=== PATIENT | male | born 1950 | race Caucasian/White ===

== ENCOUNTER 2018-01-16 19:42 | Inpatient (IN) | payer MEDICARE, BC ==
[~2018-01-16 19:42] MED LIST changes: -ASPI81TA86 PO; -CHOL10005 PO; -LISI-362 PO; -LOSA50TA72 PO; -OMEG-11 PO; -POTA20TA94 PO; -SIMV-49 PO
--- NOTE | 2018-01-16 19:51 | ER Report ---
History and Physical Time Seen By MD: 19:48 HPI/ROS CHIEF COMPLAINT: Epigastric abdominal pain HISTORY OF PRESENT ILLNESS: Patient is a 67-year-old male who is brought in by ambulance from [place] for evaluation of epigastric abdominal pain that began around 1:30 this afternoon. Patient has a prior history of gallstone pancreatitis and is status post gallstone removal. His last pancreatic otitis attack was 2 years ago. Patient denies any alcohol use and states that he quit alcohol 2 years ago when he had the bout of pancreatitis. He denies any cardiac history. Patient apparently developed pain around 1:30 pain does radiate to the back. Around 5:30 became diaphoretic. He denied any chest pain or pressure. Because the symptoms persisted he was brought into the emergency department for further evaluation. Additional history obtained from the spouse. Patient had a recurrent episode of pancreatitis in 2014 required ICU admission was, gait about pancreatic pseudocyst and then patient apparently became bacteremic and required broad-spectrum antibiotics. REVIEW OF SYSTEMS: Constitutional: No fever, no chills. Eyes: No discharge. ENT: No sore throat. Cardiovascular: No chest pain, no palpitations. Respiratory: No cough, no shortness of breath. Gastrointestinal: Epigastric abdominal pain, nausea, vomiting no diarrhea Genitourinary: No hematuria. Musculoskeletal: No back pain. Skin: No rashes. Neurological: No headache. Allergies: Coded Allergies: No Known Drug Allergies (Unverified , 01/16/18) Home Meds Reported Medications [place]-3 Fatty Acids/Fish Oil (FISH OIL 1,000 MG CAPSULE) 1 Each Capsule, 2 EACH PO QDAY, CAPSULE 01/16/18 Cholecalciferol (Vitamin D3) (VITAMIN D3) 1,000 Unit Tablet, 2 TAB PO QDAY, TAB 01/16/18 Aspirin (ASPIRIN EC) 81 Mg Tablet.dr, 81 MG PO QDAY, TAB 01/16/18 Simvastatin (SIMVASTATIN) 20 Mg Tablet, 20 MG PO HS, TAB 01/16/18 Lisinopril (LISINOPRIL) 10 Mg Tablet, 10 MG PO QDAY, TAB 01/16/18 Discontinued Reported Medications Ketorolac Tromethamine (Toradol) 10 Mg Tab, 10 MG PO QID, #12 08/22/07 Acetaminophen/Codeine (Tylenol #3 300-30 Mg) 1 Ea Tab, 2 EA PO Q4H 1, #30 1-2 TABLETS 11/7/07 Ranitidine Hcl (Zantac) 150 Mg Capsule, 150 MG PO 08/10/07 Acetaminophen (Tylenol) 325 Mg Tab, 325 MG PO Q4H 08/10/07 Past Medical/Surgical History History of gallstone pancreatitis; status post gallbladder removal. Hx Alcohol Use: Yes (OCC) Constitutional Vital Sign - Last 24 Hours 01/16/18 01/16/18 01/16/18 01/16/18 19:44 19:57 20:01 20:12 Temp 97.6 Pulse 47 46 48 Resp 20 B/P (MAP) 152/99 148/88 (108) Pulse Ox 94 99 97 O2 Delivery Nasal Cannula 01/16/18 01/16/18 01/16/18 01/16/18 20:27 20:30 20:57 21:00 Pulse 49 53 B/P (MAP) 142/89 (106) 163/86 (111) Pulse Ox 99 01/16/18 01/16/18 01/16/18 01/16/18 21:38 21:50 22:05 22:20 Pulse ? 53 B/P (MAP) 161/88 (112) Pulse Ox 99 99 98 01/16/18 23:03 B/P (MAP) 153/91 (111) Physical Exam General/Constitutional: Patient is awake, alert, nontoxic and in no acute respiratory distress. Head: Normocephalic and atraumatic. Eyes: Conjunctival clear, Pupils are equal and reactive to light. Extraocular muscles are intact and symmetrical. Sclera are clear and anicteric. Ears:External canals are clear. Tympanic membranes are clear with normal landmarks and light reflex. Nares: No rhinorrhea or bleeding. Turbinates are pink and moist. Oropharyngeal: Mucous membranes are moist. There is no pharyngeal erythema or exudate. There are no palatal petechiae. Uvula is midline and symmetrical. Neck: Supple, no adenopathy. Cardiovascular: Heart is bradycardic without audible murmurs, rubs or gallops. Pulmonary: Lungs are clear to auscultation bilaterally. There are no wheezes, rales, or rhonchi. Chest rise is symmetrical Abdomen: Epigastric abdominal pain no guarding or rebound tenderness Extremities: No gross deformities, No peripheral cyanosis. Able to move all 4 extremities. Neuro: Alert and oriented X3, Skin: No rashes, skin is warm dry and well perfused. Medical Decision Making Data Points Result Diagram: 01/16/18199901/16/181999 Laboratory Hematology Test 01/16/18 00:00 01/16/18 20:00 01/16/18 22:45 01/16/18 22:58 Serum Alcohol < 10 mg/dl Red Blood Count 6.05 M/uL (4.00-5.60) Mean Corpuscular Volume 91.3 fL (80.0-96.0) Mean Corpuscular Hemoglobin 31.7 pg (26.0-33.0) Mean Corpuscular Hemoglobin Concent 34.7 g/dL (32.0-36.0) Red Cell Distribution Width 13.9 % (11.5-14.5) Mean Platelet Volume 8.6 fL (7.2-11.1) Neutrophils (%) (Auto) 77.8 % (39.4-72.5) Lymphocytes (%) (Auto) 12.6 % (17.6-49.6) Monocytes (%) (Auto) 6.7 % (4.1-12.4) Eosinophils (%) (Auto) 1.7 % (0.4-6.7) Basophils (%) (Auto) 1.2 % (0.3-1.4) Nucleated RBC Relative Count (auto) 0.0 /100WBC Neutrophils # (Auto) 11.6 K/uL (2.0-7.4) Lymphocytes # (Auto) 1.9 K/uL (1.3-3.6) Monocytes # (Auto) 1.0 K/uL (0.3-1.0) Eosinophils # (Auto) 0.2 K/uL (0.0-0.5) Basophils # (Auto) 0.2 K/uL (0.0-0.1) Nucleated RBC Absolute Count (auto) 0.00 K/uL Prothrombin Time 13.2 seconds (12.0-14.4) Prothromb Time International Ratio 1.00 Activated Partial Thromboplast Time 22 seconds (23-35) Sodium Level 142 mmol/L (137-145) Potassium Level 3.4 mmol/L (3.5-5.0) Chloride Level 101 mmol/L (98-107) Carbon Dioxide Level 24 mmol/L (22-30) Blood Urea Nitrogen 22 mg/dl (9-21) Creatinine 1.30 mg/dl (0.66-1.25) Glomerular Filtration Rate Calc 55.1 Random Glucose 121 mg/dl (75-110) Calcium Level 10.1 mg/dl (8.4-10.2) Total Bilirubin 0.6 mg/dl (0.2-1.3) Aspartate Amino Transf (AST/SGOT) 28 U/L (0-35) Alanine Aminotransferase (ALT/SGPT) 31 U/L (0-56) Alkaline Phosphatase 86 U/L (0-126) Troponin I < 0.012 ng/ml Total Protein 8.3 gm/dl (6.3-8.2) Albumin 5.0 g/dl (3.5-5.0) Lipase 45709 U/L (23-300) Helicobacter pylori IgG Antibody Negative (NEGATIVE) Urine Color Straw Urine Clarity Clear Urine pH 5.0 pH (4.8-9.5) Urine Specific [place] 1.034 Urine Protein Negative mg/dL (NEGATIVE) Urine Glucose (UA) Negative mg/dL (NEGATIVE) Urine Ketones Trace mg/dL (NEGATIVE) Urine Blood Small (NEGATIVE) Urine Nitrite Negative (NEGATIVE) Urine Bilirubin Negative (NEGATIVE) Urine Urobilinogen Negative mg/dL (0.2-1.9) Urine Leukocyte Esterase Negative (NEGATIVE) Urine RBC 1 /HPF (0-2/HPF) Urine WBC <1 /HPF (0-5/HPF) Urine Squamous Epithelial Cells Few /LPF (</=FEW) Urine Bacteria Negative /HPF (NONE-FEW) Urine Mucus None /HPF (NONE-FEW) Lactate 3.9 mmol/L (0.7-2.1) Chemistry Test 01/16/18 00:00 01/16/18 20:00 01/16/18 22:45 01/16/18 22:58 Serum Alcohol < 10 mg/dl White Blood Count 14.9 k/uL (4.5-11.0) Red Blood Count 6.05 M/uL (4.00-5.60) Hemoglobin 19.2 g/dL (14.0-18.0) Hematocrit 55.2 % (42.0-52.0) Mean Corpuscular Volume 91.3 fL (80.0-96.0) Mean Corpuscular Hemoglobin 31.7 pg (26.0-33.0) Mean Corpuscular Hemoglobin Concent 34.7 g/dL (32.0-36.0) Red Cell Distribution Width 13.9 % (11.5-14.5) Platelet Count 209 K/uL (150-450) Mean Platelet Volume 8.6 fL (7.2-11.1) Neutrophils (%) (Auto) 77.8 % (39.4-72.5) Lymphocytes (%) (Auto) 12.6 % (17.6-49.6) Monocytes (%) (Auto) 6.7 % (4.1-12.4) Eosinophils (%) (Auto) 1.7 % (0.4-6.7) Basophils (%) (Auto) 1.2 % (0.3-1.4) Nucleated RBC Relative Count (auto) 0.0 /100WBC Neutrophils # (Auto) 11.6 K/uL (2.0-7.4) Lymphocytes # (Auto) 1.9 K/uL (1.3-3.6) Monocytes # (Auto) 1.0 K/uL (0.3-1.0) Eosinophils # (Auto) 0.2 K/uL (0.0-0.5) Basophils # (Auto) 0.2 K/uL (0.0-0.1) Nucleated RBC Absolute Count (auto) 0.00 K/uL Prothrombin Time 13.2 seconds (12.0-14.4) Prothromb Time International Ratio 1.00 Activated Partial Thromboplast Time 22 seconds (23-35) Glomerular Filtration Rate Calc 55.1 Calcium Level 10.1 mg/dl (8.4-10.2) Total Bilirubin 0.6 mg/dl (0.2-1.3) Aspartate Amino Transf (AST/SGOT) 28 U/L (0-35) Alanine Aminotransferase (ALT/SGPT) 31 U/L (0-56) Alkaline Phosphatase 86 U/L (0-126) Troponin I < 0.012 ng/ml Total Protein 8.3 gm/dl (6.3-8.2) Albumin 5.0 g/dl (3.5-5.0) Lipase 82737 U/L (23-300) Helicobacter pylori IgG Antibody Negative (NEGATIVE) Urine Color Straw Urine Clarity Clear Urine pH 5.0 pH (4.8-9.5) Urine Specific [place] 1.034 Urine Protein Negative mg/dL (NEGATIVE) Urine Glucose (UA) Negative mg/dL (NEGATIVE) Urine Ketones Trace mg/dL (NEGATIVE) Urine Blood Small (NEGATIVE) Urine Nitrite Negative (NEGATIVE) Urine Bilirubin Negative (NEGATIVE) Urine Urobilinogen Negative mg/dL (0.2-1.9) Urine Leukocyte Esterase Negative (NEGATIVE) Urine RBC 1 /HPF (0-2/HPF) Urine WBC <1 /HPF (0-5/HPF) Urine Squamous Epithelial Cells Few /LPF (</=FEW) Urine Bacteria Negative /HPF (NONE-FEW) Urine Mucus None /HPF (NONE-FEW) Lactate 3.9 mmol/L (0.7-2.1) Coagulation Test 01/16/18 20:00 Prothrombin Time 13.2 seconds Prothromb Time International Ratio 1.00 Activated Partial Thromboplast Time 22 seconds Toxicology Test 01/16/18 00:00 Serum Alcohol < 10 mg/dl Urinalysis Test 01/16/18 22:45 Urine Color Straw Urine Clarity Clear Urine pH 5.0 pH (4.8-9.5) Urine Specific [place] 1.034 Urine Protein Negative mg/dL (NEGATIVE) Urine Glucose (UA) Negative mg/dL (NEGATIVE) Urine Ketones Trace mg/dL (NEGATIVE) Urine Blood Small (NEGATIVE) Urine Nitrite Negative (NEGATIVE) Urine Bilirubin Negative (NEGATIVE) Urine Urobilinogen Negative mg/dL (0.2-1.9) Urine Leukocyte Esterase Negative (NEGATIVE) Urine RBC 1 /HPF (0-2/HPF) Urine WBC <1 /HPF (0-5/HPF) Urine Squamous Epithelial Cells Few /LPF (</=FEW) Urine Bacteria Negative /HPF (NONE-FEW) Urine Mucus None /HPF (NONE-FEW) EKG/Imaging Imaging FACILITY: [facility] PATIENT NAME: Uri Banuelos : 1950 MR: [id number] V: [id number] EXAM DATE: ORDERING PHYSICIAN: SOPHIE KUHN TECHNOLOGIST: Location: [facility] Patient: Uri Banuelos : 1950 Visit/Account:[id number] Date of Sevice: 01/16/2018 EXAMINATION: LIMITED ABDOMINAL ULTRASOUND DATE: 01/16/2018 10:21 PM INDICATION: Pancreatitis. TECHNIQUE: Hunt scale, color and pulsed Doppler ultrasound images of the right upper quadrant were obtained. COMPARISON: Same day CT abdomen and pelvis. FINDINGS: Pancreas: The pancreas is suboptimally visualized but appears edematous. Aorta and IVC: The imaged abdominal aorta and IVC are patent. Liver: The liver shows normal shape, parenchymal echogenicity and echotexture. The right hepatic lobe measures 13 cm craniocaudal, which is within normal limits. There is no definite focal lesion in the liver. The main portal vein is patent with hepatopedal flow. Bile ducts: The intrahepatic bile ducts are not dilated. The common bile duct measures 8 mm in diameter, which is mildly dilated. No well-demonstrated intraductal stone. Gallbladder: The gall bladder is surgically absent. Kidney: The right kidney measures 10.9 x 5.1 x 5.5 cm. The parenchymal echogenicity and thickness appear within normal range. No focal lesion is demonstrated. No hydronephrosis. No ascites. IMPRESSION: 1. Mild dilation of the extrahepatic bile duct likely related to age and cholecystectomy. No demonstrated choledocholithiasis. 2. Pancreas is suboptimally visualized but appears edematous, consistent with pancreatitis seen on CT. Report Dictated By: Óscar Echevarria MD at 01/16/2018 11:44 PM Report E-Signed By: Óscar Echevarria MD at 01/16/2018 11:53 PM WSN:[id number] FACILITY: [facility] PATIENT NAME: : 1950 MR: [id number] V: [id number] EXAM DATE: ORDERING PHYSICIAN: SOPHIE KUHN TECHNOLOGIST: Location: [facility] Patient: : 1950 Visit/Account:[id number] Date of Sevice: 01/16/2018 COMPUTED TOMOGRAPHY ABDOMEN AND PELVIS WITH INTRAVENOUS CONTRAST DATE OF EXAM: 01/16/2018 8:40 PM INDICATION: Abdominal pain. COMPARISON: None available. TECHNIQUE: Contrast enhanced abdomen and pelvis CT performed during the injection of 75 ml of Isovue 370. Sagittal and coronal reconstructions were performed. One of the following dose optimization techniques was utilized in the performance of this exam: Automated exposure control; adjustment of the mA and/or kV according to the patient's size; or use of an iterative reconstruction technique. Specific details can be referenced in the facility's radiology CT exam operational policy. FINDINGS: Lung bases: Mild scarring/atelectasis. Bilateral calcified granulomas. Coronary artery calcifications. Liver and hepatic vasculature: Normal. Gallbladder and bile ducts: Cholecystectomy. Spleen: Normal. Pancreas: Marked peripancreatic inflammation and fluid. The pancreas appears swollen and slightly hypoattenuating with no suspicious focal geographic hypoattenuation or other lesion. No drainable collection. Adjacent vasculature is grossly normal. Adrenals: Normal. Kidneys, ureters and bladder: Nonacute. Small right renal cyst. Retroperitoneum and aorta: Normal caliber aorta with mild atherosclerosis. No adenopathy. Fluid tracking from the pancreas. GI tract, mesentery and peritoneum: No evidence of obstruction. No pneumatosis or pneumoperitoneum. Moderate sigmoid diverticulosis. Normal appendix. Small hiatal hernia. Prostate and seminal vesicles: Normal. Bones and soft tissues: No acute abnormality or suspicious lesion. Transitional lumbosacral vertebra. Left testicle located near the external ring of the inguinal canal, likely transient. IMPRESSION: . 1. Severe pancreatitis with no apparent suspicious focal lesion, necrosis, drainable collection, or vascular complication. 2. Moderate sigmoid diverticulosis. Report Dictated By: Óscar Echevarria MD at 01/16/2018 9:44 PM Report E-Signed By: Óscar Echevarria MD at 01/16/2018 10:01 PM WSN:[id number] ED Course/Re-evaluation Clinical Indication for ER IV: Hydration, IV Access ED Course 01/16/2018 8:02:17 pm patient with epigastric abdominal pain prior history of pancreatitis. Plan at this time will be workup including CBC CMP lipase troponin chest x-ray and EKG. Patient still 8 out of 10 pain's we'll give IV fentanyl. We'll give fluid bolus. We'll also perform CT scan of the abdomen and pelvis with IV contrast if her creatinine is normal 01/17/2018 12:06:53 am history physical exam all pertinent imaging studies and lab tests were discussed with the admitting doctor who is Lucius Coffman. Patient will be admitted for acute pancreatitis. Patient's pain is currently under control no questions or concerns from the patient or his spouse at time of disposition. Decision to Disposition Date: Jan 17, 2018 Decision to Disposition Time: 00:07 Depart Departure Latest Vital Signs Vital Signs Date Time Temp Pulse Resp B/P (MAP) Pulse Ox O2 Delivery O2 Flow Rate FiO2 01/16/18 23:03 153/91 (111) 01/16/18 22:20 53 98 01/16/18 19:44 97.6 20 Nasal Cannula Impression: Primary Impression: Pancreatitis Condition: Improved Disposition: Admitted from ER (To Bailey Coffman) Problem Qualifiers Primary Impression: Pancreatitis Chronicity: acute Pancreatitis type: unspecified pancreatitis type Acute pancreatitis complication: unspecified Qualified Codes: K85.90 - Acute pancreatitis without necrosis or infection, unspecified SOPHIE KUHN MD Jan 16, 2018 19:51
[2018-01-16] MEDS ORDERED: NS(*) 0.9% 1000 ML BAG 1,000 ML IV ONE ×2 (19:52→22:50)
[2018-01-16] MEDS ORDERED: LISI-362 PO (19:55)
[2018-01-16] MEDS ORDERED: fentaNYL CITR 100 MCG/2 ML AMP IVP ONE (19:55)
[2018-01-16] MEDS ORDERED: OMEG-11 PO (19:55)
[2018-01-16] MEDS ORDERED: ASPI81TA86 PO (19:55)
[2018-01-16] MEDS ORDERED: CHOL10005 PO (19:55)
[2018-01-16] MEDS ORDERED: SIMV-49 PO (19:55)
[2018-01-16 20:12] LABS: PLATELET COUNT, AUTOMATED 209 K/uL (150-450)
--- NOTE | 2018-01-16 20:15 | EKG ---
FACILITY: [facility] PATIENT NAME: : [id number] MR: [id number] V: [id number] EXAM DATE: ORDERING PHYSICIAN: SOPHIE KUHN TECHNOLOGIST: PALMER Toussaint Reason : EPIGASTRIC Blood Pressure : / mmHG Vent. Rate : 050 BPM Atrial Rate : 050 BPM P-R Int : 152 ms QRS Dur : 106 ms QT Int : 442 ms P-R-T Axes : 051 -33 046 degrees QTc Int : 402 ms Sinus bradycardia Possible left atrial enlargement Left axis deviation Abnormal ECG No previous ECGs available Confirmed by AYAKA CHENG ([id number]) on 01/17/2018 5:47:20 AM Referred By: Confirmed By:AYAKA CHENG
[2018-01-16] MEDS ORDERED: EMS NS 0.9%(*) 1000 ML BAG 1,000 ML IV ONE (20:25)
[2018-01-16] MEDS ORDERED: HYDROmorphone* 1 MG/ML 1 MG/ML ML IVP ONE ×2 (20:40→22:50)
[2018-01-16] MEDS ORDERED: IOPAMIDOL 76% 75 ML INFUS BTL 75 ML ONE (20:50)
[2018-01-16] MEDS ORDERED: ONDANSETRON 4 MG/2 ML VIAL ONE (20:54)
[2018-01-16] MEDS ORDERED: ONDANSETRON 4 MG/2 ML VIAL IVP ONE (20:55)
--- NOTE | 2018-01-16 22:05 | RADIOLOGY IMAGING REPORT ---
FACILITY: [facility] PATIENT NAME: Uri Banuelos : 1950 MR: [id number] V: [id number] EXAM DATE: ORDERING PHYSICIAN: SOPHIE KUHN TECHNOLOGIST: Location: [facility] [place] Patient: Uri Banuelos : 1950 Visit/Account:[id number] Date of Sevice: 01/16/2018 COMPUTED TOMOGRAPHY ABDOMEN AND PELVIS WITH INTRAVENOUS CONTRAST DATE OF EXAM: 01/16/2018 8:40 PM INDICATION: Abdominal pain. COMPARISON: None available. TECHNIQUE: Contrast enhanced abdomen and pelvis CT performed during the injection of 75 ml of Isovue 370. Sagittal and coronal reconstructions were performed. One of the following dose optimization te chniques was utilized in the performance of this exam: Automated exposure control; adjustment of the mA and/or kV according to the patient's size; or use of an iterative reconstruction technique. Spec [facility] details can be referenced in the facility's radiology CT exam operational policy. FINDINGS: Lung bases: Mild scarring/atelectasis. Bilateral calcified granulomas. Coronary artery calcificatio ns. Liver and hepatic vasculature: Normal. Gallbladder and bile ducts: Cholecystectomy. Spleen: Normal. Pancreas: Marked peripancreatic inflammation and fluid. The pancreas appears swollen and slightly h ypoattenuating with no suspicious focal geographic hypoattenuation or other lesion. No drainable col lection. Adjacent vasculature is grossly normal. Adrenals: Normal. Kidneys, ureters and bladder: Nonacute. Small right renal cyst. Retroperitoneum and aorta: Normal caliber aorta with mild atherosclerosis. No adenopathy. Fluid tr acking from the pancreas. GI tract, mesentery and peritoneum: No evidence of obstruction. No pneumatosis or pneumoperitoneum. Moderate sigmoid diverticulosis. Normal appendix. Small hiatal hernia. Prostate and seminal vesicles: Normal. Bones and soft tissues: No acute abnormality or suspicious lesion. Transitional lumbosacral vertebr a. Left testicle located near the external ring of the inguinal canal, likely transient. IMPRESSION: . 1. Severe pancreatitis with no apparent suspicious focal lesion, necrosis, drainable collection, or vascular complication. 2. Moderate sigmoid diverticulosis. Report Dictated By: Óscar Echevarria MD at 01/16/2018 9:44 PM Report E-Signed By: Óscar Echevarria MD at 01/16/2018 10:01 PM WSN:[id number]
[2018-01-16] MEDS ORDERED: LORazepam 2 MG/ML VIAL IVP ONE (22:50)
--- NOTE | 2018-01-16 23:58 | RADIOLOGY IMAGING REPORT ---
FACILITY: PATIENT NAME: Uri Banuelos : 1950 MR: [id number] V: [id number] EXAM DATE: ORDERING PHYSICIAN: SOPHIE KUHN TECHNOLOGIST: Location: [facility] Patient: Uri Banuelos : 1950 Visit/Account:[id number] Date of Sevice: 01/16/2018 EXAMINATION: LIMITED ABDOMINAL ULTRASOUND DATE: 01/16/2018 10:21 PM INDICATION: Pancreatitis. TECHNIQUE: Hunt scale, color and pulsed Doppler ultrasound images of the right upper quadrant were ob tained. COMPARISON: Same day CT abdomen and pelvis. FINDINGS: Pancreas: The pancreas is suboptimally visualized but appears edematous. Aorta and IVC: The imaged abdominal aorta and IVC are patent. Liver: The liver shows normal shape, parenchymal echogenicity and echotexture. The right hepatic lobe measures 13 cm craniocaudal, which is within normal limits. There is no definite focal lesion in the liver. The main portal vein is patent with hepatopedal flow. Bile ducts: The intrahepatic bile ducts are not dilated. The common bile duct measures 8 mm in diamet er, which is mildly dilated. No well-demonstrated intraductal stone. Gallbladder: The gall bladder is surgically absent. Kidney: The right kidney measures 10.9 x 5.1 x 5.5 cm. The parenchymal echogenicity and thickness cj ear within normal range. No focal lesion is demonstrated. No hydronephrosis. No ascites. IMPRESSION: 1. Mild dilation of the extrahepatic bile duct likely related to age and cholecystectomy. No demons trated choledocholithiasis. 2. Pancreas is suboptimally visualized but appears edematous, consistent with pancreatitis seen on C T. Report Dictated By: Óscar Echevarria MD at 01/16/2018 11:44 PM Report E-Signed By: Óscar Echevarria MD at 01/16/2018 11:53 PM WSN:[id number]
[2018-01-17] VITALS (7 sets, daily range): BP systolic 149–174; BP diastolic 89–105
[2018-01-17] MEDS ORDERED: PROMETHAZINE 25 MG/ML 1 ML AMP IVP PRN (01:30)
--- NOTE | 2018-01-17 01:48 | History & Physical ---
History of Present Illness Chief Complaint Abdominal pain History of Present Illness 67yo male with PMHx significant for at least three episodes of acute pancreatitis over the past 17 years. He was previously a drinker and it was felt the pancreatitis was most likely secondary to the alcohol. He has not had any alcohol for over three years. He had onset of upper abdominal pain approximately 12 hours ago. He tried to relieve the discomfort with TUMS, but they provided no relief. He did have some nausea, but no vomiting. He did have some sweats. No obvious fevers. No diarrhea. He does chew tobacco. He also takes simvastatin and fish oil for hyperlipidemia. He was evaluated in the ER and found to have acute pancreatitis on lab and CT scan. He was recommended for admission. History Problems: (1) HTN (hypertension) Status: Chronic (2) Hyperlipidemia Status: Chronic (3) Recurrent pancreatitis Status: Chronic (4) Pancreatic pseudocyst Status: Resolved (5) History of cholecystectomy Status: Resolved (6) S/P bilateral cataract extraction Status: Resolved (7) History of tonsillectomy Status: Resolved Home Meds Reported Medications Plains-3 Fatty Acids/Fish Oil (FISH OIL 1,000 MG CAPSULE) 1 Each Capsule, 2 EACH PO QDAY, CAPSULE 01/16/18 Cholecalciferol (Vitamin D3) (VITAMIN D3) 1,000 Unit Tablet, 2 TAB PO QDAY, TAB 01/16/18 Aspirin (ASPIRIN EC) 81 Mg Tablet.dr, 81 MG PO QDAY, TAB 01/16/18 Simvastatin (SIMVASTATIN) 20 Mg Tablet, 20 MG PO HS, TAB 01/16/18 Lisinopril (LISINOPRIL) 10 Mg Tablet, 10 MG PO QDAY, TAB 01/16/18 Discontinued Reported Medications Ketorolac Tromethamine (Toradol) 10 Mg Tab, 10 MG PO QID, #12 08/22/07 Acetaminophen/Codeine (Tylenol #3 300-30 Mg) 1 Ea Tab, 2 EA PO Q4H 1, #30 1-2 TABLETS 08/22/07 Ranitidine Hcl (Zantac) 150 Mg Capsule, 150 MG PO 08/10/07 Acetaminophen (Tylenol) 325 Mg Tab, 325 MG PO Q4H 08/10/07 Allergies: Coded Allergies: No Known Drug Allergies (Unverified , 01/16/18) Hx Smoking: No Tobacco Used: Smokeless Caffeine Intake: Soda Caffeine/Cups Per Day: 2-3 cups Hx Alcohol Use: Yes (none since 2014) Hx Substance Use Disorder: No Review of Systems Constitutional: No Fever, No Chills Cardiovascular: No Chest Pain, No Palpitations Respiratory: No Shortness of Breath, No Cough Gastrointestinal: Nausea, No Vomiting, No Diarrhea, No Hematemesis, No Hematochezia, No Melena, Abdominal Pain Genitourinary: No Dysuria, No Hematuria Exam Vital Signs Vital Signs Date Time Temp Pulse Resp B/P (MAP) Pulse Ox O2 Delivery O2 Flow Rate FiO2 01/17/18 00:51 97.3 50 16 174/93 (120) 96 Nasal Cannula 2.0 General Appearance: Alert, Awake Neuro: No Gross deficits Eyes: PERRLA ENT: Oropharynx Clear Neck: No Masses Cardiovascular: Regular Rate and Rhythm, No Edema, No JVD Respiratory: Clear to Auscultation Chest: No Tenderness GI: Other (soft/BS present/tenderness over upper abdomen/no guarding or rebound ) : No CVA Tenderness Lymph: No Adenopathy Extremities: Warm, Perfused Integumentary: Skin Intact without Lesion / Mass Psych: Alert & Oriented X3 Medical Decision Making Data Points Result Diagram: 01/16/18199901/16/181999 Item Value Date Time Lipase 78748 U/L H 01/16/181999 Albumin 5.0 g/dl 01/16/181999 Total Protein 8.3 gm/dl H 01/16/181999 Troponin I < 0.012 ng/ml 01/16/181999 Alkaline Phosphatase 86 U/L 01/16/181999 Alanine Aminotransferase (ALT/SGPT) 31 U/L 01/16/181999 Aspartate Amino Transf (AST/SGOT) 28 U/L 01/16/181999 Total Bilirubin 0.6 mg/dl 01/16/181999 Calcium Level 10.1 mg/dl 01/16/181999 Lactate 3.9 mmol/L *H 01/16/18 2258 Urine Mucus None /HPF 01/16/18 2245 Urine Bacteria Negative /HPF 01/16/18 2245 Urine Squamous Epithelial Cells Few /LPF 01/16/18 2245 Urine WBC <1 /HPF 01/16/18 2245 Urine RBC 1 /HPF 01/16/18 2245 Urine Leukocyte Esterase Negative 4/3/18 2245 Urine Urobilinogen Negative mg/dL 01/16/182244 Urine Bilirubin Negative 01/16/182244 Urine Nitrite Negative 01/16/182244 Urine Blood Small 01/16/182244 Urine Ketones Trace mg/dL 01/16/182244 Urine Glucose (UA) Negative mg/dL 01/16/182244 Urine Specific Boley 1.034 01/16/182244 Urine Protein Negative mg/dL 01/16/182244 Urine pH 5.0 pH 01/16/182244 Urine Clarity Clear 01/16/182244 Urine Color Straw 01/16/182244 Helicobacter pylori IgG Antibody Negative 01/16/181999 Serum Alcohol < 10 mg/dl 01/16/18 Activated Partial Thromboplast Time 22 seconds L 01/16/181999 Prothromb Time International Ratio 1.00 01/16/181999 Prothrombin Time 13.2 seconds 01/16/181999 EKG / Imaging Imaging PATIENT NAME: Uri : 1950 MR: [id number] V: [id number] EXAM DATE: ORDERING PHYSICIAN: SOPHIE KUHN TECHNOLOGIST: Location: [facility] Patient: : 1950 Visit/Account:[id number] [facility] EXAMINATION: LIMITED ABDOMINAL ULTRASOUND DATE: 01/16/2018 10:21 PM INDICATION: Pancreatitis. TECHNIQUE: Hunt scale, color and pulsed Doppler ultrasound images of the right upper quadrant were obtained. COMPARISON: Same day CT abdomen and pelvis. FINDINGS: Pancreas: The pancreas is suboptimally visualized but appears edematous. Aorta and IVC: The imaged abdominal aorta and IVC are patent. Liver: The liver shows normal shape, parenchymal echogenicity and echotexture. The right hepatic lobe measures 13 cm craniocaudal, which is within normal limits. There is no definite focal lesion in the liver. The main portal vein is patent with hepatopedal flow. Bile ducts: The intrahepatic bile ducts are not dilated. The common bile duct measures 8 mm in diameter, which is mildly dilated. No well-demonstrated intraductal stone. Gallbladder: The gall bladder is surgically absent. Kidney: The right kidney measures 10.9 x 5.1 x 5.5 cm. The parenchymal echogenicity and thickness appear within normal range. No focal lesion is demonstrated. No hydronephrosis. No ascites. IMPRESSION: 1. Mild dilation of the extrahepatic bile duct likely related to age and cholecystectomy. No demonstrated choledocholithiasis. 2. Pancreas is suboptimally visualized but appears edematous, consistent with pancreatitis seen on CT. Report Dictated By: Óscar Echevarria MD at 01/16/2018 11:44 PM Report E-Signed By: Óscar Echevarria MD at 01/16/2018 11:53 PM WSN:[id number] PATIENT NAME: Uri Banuelos : 1950 MR: [id number] V: [id number] EXAM DATE: [id number] ORDERING PHYSICIAN: SOPHIE KUHN TECHNOLOGIST: Location: [facility] Patient: Uri Banuelos : 1950 Visit/Account:[id number] Date of Sevice: 01/16/2018 COMPUTED TOMOGRAPHY ABDOMEN AND PELVIS WITH INTRAVENOUS CONTRAST DATE OF EXAM: 01/16/2018 8:40 PM INDICATION: Abdominal pain. COMPARISON: None available. TECHNIQUE: Contrast enhanced abdomen and pelvis CT performed during the injection of 75 ml of Isovue 370. Sagittal and coronal reconstructions were performed. One of the following dose optimization techniques was utilized in the performance of this exam: Automated exposure control; adjustment of the mA and/or kV according to the patient's size; or use of an iterative reconstruction technique. Specific details can be referenced in the facility's radiology CT exam operational policy. FINDINGS: Lung bases: Mild scarring/atelectasis. Bilateral calcified granulomas. Coronary artery calcifications. Liver and hepatic vasculature: Normal. Gallbladder and bile ducts: Cholecystectomy. Spleen: Normal. Pancreas: Marked peripancreatic inflammation and fluid. The pancreas appears swollen and slightly hypoattenuating with no suspicious focal geographic hypoattenuation or other lesion. No drainable collection. Adjacent vasculature is grossly normal. Adrenals: Normal. Kidneys, ureters and bladder: Nonacute. Small right renal cyst. Retroperitoneum and aorta: Normal caliber aorta with mild atherosclerosis. No adenopathy. Fluid tracking from the pancreas. GI tract, mesentery and peritoneum: No evidence of obstruction. No pneumatosis or pneumoperitoneum. Moderate sigmoid diverticulosis. Normal appendix. Small hiatal hernia. Prostate and seminal vesicles: Normal. Bones and soft tissues: No acute abnormality or suspicious lesion. Transitional lumbosacral vertebra. Left testicle located near the external ring of the inguinal canal, likely transient. IMPRESSION: . 1. Severe pancreatitis with no apparent suspicious focal lesion, necrosis, drainable collection, or vascular complication. 2. Moderate sigmoid diverticulosis. Report Dictated By: Óscar Echevarria MD at 01/16/2018 9:44 PM Report E-Signed By: Óscar Echevarria MD at 01/16/2018 10:01 PM WSN:[id number] Assessment and Plan Problems: (1) Acute pancreatitis Status: Acute Assessment & Plan: It appears he has another episode of acute pancreatitis. No definite etiology at this point. He has not had any alcohol for over three years. He does take simvastatin and fish oil. He also chews tobacco. His gallbladder has been removed and it does not appear he has a common duct stone on US or CT scan. Will place NPO, give generous IV fluids, start Dilaudid FINANCE VICE PRESIDENT/ Phenergan, hold his usual medications, and watch labs closely. Venous Thromboembolism Antithrombotics Is Pt On Any Antithrombotics?: No (Large amount of inflammatory change with his acute pancreatitis) Exam Sepsis Risk: No Definite Risk AYAKA CHENG MD Jan 17, 2018 01:47
[2018-01-17] MEDS: HYDROmorphone PCA 6 MG/30 ML IV PRN ×2 (01:54→23:26)
[2018-01-17] MEDS: NS(*) 0.9% 1000 ML BAG 1,000 ML IV PRN ×4 (01:54→23:46)
[2018-01-17 07:37] LABS: PLATELET COUNT, AUTOMATED 165 K/uL (150-450)
[2018-01-17] MEDS ORDERED: NS(*) 0.9% 1000 ML BAG 1,000 ML IV ONE (07:55)
[2018-01-17] MEDS: BROMFENAC SODIUM OD SCH (09:18)
[2018-01-17] MEDS ORDERED: NS(*) 0.9% 500 ML BAG 500 ML IV ONE (12:35)
--- NOTE | 2018-01-17 12:35 | Miscellaneous Provider Note ---
Miscellaneous Provider Note Note Vital Signs Label Value Date Time Patient Temperature 98.9 degrees F 01/17/18 1118 Temperature Source Oral 01/17/18 1118 Blood Pressure Assessment 161/90 (113) 01/17/18 1118 Location Right Arm Source BP Device Position Semi Fowlers Bedside Pulse Oximetry 91 % 01/17/18 1118 Item Value Date Time Oxygen Delivery Method Room Air 01/17/18 1118 Item Value Date Time Lactate 4.1 mmol/L *H 01/17/18 0721 Lactate 3.4 mmol/L H 01/17/18 1107 Blood Urea Nitrogen 18 mg/dl 01/17/18 0721 Creatinine 1.00 mg/dl 01/17/18 0721 Total Bilirubin 0.7 mg/dl 01/17/18 0721 Aspartate Amino Transf (AST/SGOT) 30 U/L 01/17/18 0721 Alanine Aminotransferase (ALT/SGPT) 27 U/L 01/17/18 0721 Alkaline Phosphatase 74 U/L 01/17/18 0721 Triglycerides Level 45 mg/dl 01/17/18 1107 Lipase 5794 U/L H 01/17/18 0721 Total Protein 6.9 gm/dl 01/17/18 0721 Albumin 4.1 g/dl 01/17/1821 Sodium Level 143 mmol/L 01/17/1821 Potassium Level 3.8 mmol/L 01/17/1821 Chloride Level 106 mmol/L 01/17/1821 Carbon Dioxide Level 19 mmol/L L 01/17/1821 White Blood Count 19.7 k/uL H 01/17/1821 Hemoglobin 18.5 g/dL H 01/17/1821 Hematocrit 54.7 % H 01/17/1821 Neutrophils (%) (Auto) 90.7 % H 01/17/18720 Lymphocytes (%) (Auto) 3.6 % L 01/17/18720 Monocytes (%) (Auto) 5.4 % 01/17/18720 Eosinophils (%) (Auto) 0.0 % L 01/17/18720 Basophils (%) (Auto) 0.3 % 01/17/18720 Nucleated RBC Relative Count (auto) 0.0 /100WBC 01/17/18720 He was bolused 1000cc of NS, which brought down his lactate, but hasn't normalized it. Overall, he is reporting less pain and feeling improvement. Will bolus another 500cc of NS and repeat the lactate. Vitals stable. ZBIGNIEW DUMONT MD Jan 17, 2018 12:35
[2018-01-17] MEDS: CALCIUM CARBONATE 500 MG CHEW PO PRN (13:14)
--- NOTE | 2018-01-17 13:59 | Medical Nutrition Therapy ---
Nutrition Anthropometrics Weight (Pounds): 178 Weight (Calculated Kilograms): 80.739 Hx Weight Loss: No Hx Weight Gain: Yes Celio Nutrition Score: Adequate Celio Nutrition Risk Score: 20 Dietary Referral Nutrition Risk Factors: Nutrition Risk Comment: Physical Findings Physical Appearance: Pt Ht unavailable in EMR Skin Appearance Skin Appearance: Edema Edema Location Modifier: Edema Location: Type of Edema: Degree of Edema: Gastrointestinal Symptoms GI Symtoms: Nausea, Vomiting Tube Present: Bowel Sounds: Recent Bowel Pattern: Stool Characteristics: Nutrition/Food History N/V Alcohol Use: Never Amount of Alcohol Used: Pt with a past history of consuming alcohol Nutritional Diagnosis Nutritional Risk Acuity 2: Pancreatitis Past Medical History: PMH significant for HTN, HLD, 3 episodes of acute pancreatitis over 17 years Nutritional Acuity: 2-Moderate Nutrition Diagnosis: Altered GI Function Nutrition Problem/Etiology/Sym: recurrent pancreatitis Energy Requirement: 2180 (kcal/day (27 kcal/ kg - No recorded Ht.)) Protein Requirement: 88 (g/day (1.1 g per kg)) Fluid Requirement: 2400 (per day (30 mL/kg)) Diet Type: NPO (Nothing by Mouth) Nutrition Intervention: Encourage intake, Incr diet as tolerated Nutrition Monitoring & Eval Nutrition Goals: Eat 75-100% Meal Nutrition Follow-Up: Poor Intake Nutrition Monitoring: Monitor diet advancement. Pt diet remains NPO. Encourage adequate intake. RD Patient Assessment Time: [address] Assessment Type: RD Assessment Patient Nutrition Acuity: 2-Moderate Follow Up Date: Jan 20, 2018 Nutritional Comment: Pt with a diagnosis of redcurrent pancreatitis with pancreatitis pseudocyst, HLD and HTN. Pt with nausea, no vomiting. Pt remains NPO since admit (01/17). Pt WBC and Hemoglobin are high. Pt lipase 5794. MARY ANN FONTENOT Jan 17, 2018 13:51
[2018-01-18] VITALS (7 sets, daily range): BP systolic 150–157; BP diastolic 88–97
[2018-01-18 06:05] LABS: PLATELET COUNT, AUTOMATED 120 K/uL (150-450)
[2018-01-18] MEDS: NS(*) 0.9% 1000 ML BAG 1,000 ML IV PRN ×2 (07:39→17:30)
[2018-01-18] MEDS: BROMFENAC SODIUM OD SCH (09:49)
[2018-01-18] MEDS: NICOTINE 14 MG/24 HR PATCH TD SCH (09:49)
--- NOTE | 2018-01-18 10:41 | Hospitalist Progress Note ---
Subjective Progress Notes Subjective The patient complains of abdominal pain with any movement. Physical Exam Vital Signs Date Time Temp Pulse Resp B/P (MAP) Pulse Ox O2 Delivery O2 Flow Rate FiO2 01/18/18 07:34 87 01/18/18 07:27 99.3 20 157/90 (112) Nasal Cannula 2.0 01/18/18 02:57 75 Intake and Output 01/19/18 07:00 Intake Total 1013 ml Balance 1013 ml Intake IV Total 1013 ml General Appearance: Alert, Awake, No Acute Distress, Afebrile Neuro: No Gross deficits Eyes: PERRLA Cardiovascular: Regular Rate and Rhythm Respiratory: Clear to Auscultation GI: Other (Soft, nondistended. Diffusely tender to palpation.) Extremities: Warm, Perfused, Other (Dung hose in place.) Psych: Alert & Oriented X3, Appropriate Mood & Affect Result Diagram: 01/18/18 0544 01/18/18 05 Item Value Date Time Lipase 5858 U/L H 01/18/18 0544 Amylase Level 697 U/L H 01/18/18 0544 BC X 2 are no growth. Assessment and Plan Problems: (1) Acute pancreatitis Status: Acute Assessment & Plan: Acute pancreatitis. No definite etiology at this point. He has not had any alcohol for over three years. He does take simvastatin and fish oil. He also chews tobacco. His gallbladder has been removed and it did not appear he had a common duct stone on US or CT scan. However, today his LFTs are elevated in an obstructive pattern. Will place NPO, give generous IV fluids, start Dilaudid ACETYLENE TORCH OPERATOR/Phenergan, and hold his usual medications. Will order an MRCP today to evaluate new elevation of LFTs in obstructive pattern. WBC is up as well. Consider antibiotics as well. Will wait for results of MRCP. Time Spent on Plan of Care: < 30 min Exam Sepsis Risk: No Definite Risk MYKEL CHENG MD Jan 18, 2018 10:41
[2018-01-18] MEDS ORDERED: GADOBENATE 529MG/1ML 15ML VIAL IVP ONE (11:34)
[2018-01-18] MEDS: ARTIFICIAL TEARS OINT 7 GM 7 GM TUBE OP PRN (14:25)
--- NOTE | 2018-01-18 15:00 | RADIOLOGY IMAGING REPORT ---
FACILITY: [facility] - [place] PATIENT NAME: Uri Banuelos : 1950 MR: [id number] V: [id number] EXAM DATE: ORDERING PHYSICIAN: MYKEL CHENG TECHNOLOGIST: Location: [facility] [place] Patient: Uri Banuelos : 1950 Visit/Account:[id number] Date of Sevice: 01/18/2018 MRI CHOLANGIOPANCREAT W/WO CON HISTORY: pancreatitis, hepatitis with obstructive pattern TECHNIQUE: Multiplanar multisequence magnetic resonance imaging of the abdomen with and without intr avenous contrast including magnetic resonance cholangiopancreatography (MRCP). CONTRAST: 15 mL MultiHance COMPARISON: CT abdomen pelvis January 16, 2018 FINDINGS: Visualized lung bases: Increasing small posterior layering bilateral pleural effusions, right greater than left and increasing bibasilar atelectasis Liver: Negative. Gallbladder: Cholecystectomy Bile ducts: No evidence of biliary ductal dilatation Spleen: Negative. Adrenal glands: Negative. Pancreas: There is extensive peripancreatic inflammation again identified. The pancreas appears extr amish swollen and heterogeneous. An enhancing pancreatic mass is not seen. Pancreatic pseudocyst no t identified and the pancreatic duct does not appear dilated. There is increasing ascites seen throu ghout the visualized abdomen. Kidneys: Negative. Vessels/spaces/nodes: No bulky adenopathy or ascites. Visualized GI: Grossly unremarkable. Bones/soft tissues: Unremarkable. IMPRESSION: The pancreas appears extremely swollen and heterogeneous. There is extensive peripancreatic inflamma tion reidentified consistent with the history of severe pancreatitis. A pancreatic mass or pseudocys t is not seen. There is increasing ascites throughout the visualized abdomen Increasing small bilateral posterior layering pleural effusions, right greater than left with increas ing bibasilar atelectasis Postsurgical changes from a cholecystectomy No evidence of biliary ductal dilatation Report Dictated By: Tejal Irizarry MD at 01/18/2018 2:36 PM Report E-Signed By: Tejal Irizarry MD at 01/18/2018 2:55 PM WSN:[id number]
[2018-01-18] MEDS ORDERED: IMIPENEM/CILASTA(*) 500MG VIAL 500 MG in NS(*) 0.9% 100 ML BAG 100 ML IVPB SCH (16:00)
[2018-01-18] MEDS: IMIPENEM/CILASTA(*) 500MG VIAL 500 MG in NS(*) 0.9% 100 ML BAG 100 ML IVPB SCH ×2 (17:52→23:51)
[2018-01-18] MEDS: CALCIUM CARBONATE 500 MG CHEW PO PRN (20:28)
[2018-01-19] MEDS: NS(*) 0.9% 1000 ML BAG 1,000 ML IV PRN (02:08)
[2018-01-19] MEDS ORDERED: NS(*) 0.9% 1000 ML BAG 1,000 ML IV PRN ×2 (04:13→09:53)
[2018-01-19] MEDS: IMIPENEM/CILASTA(*) 500MG VIAL 500 MG in NS(*) 0.9% 100 ML BAG 100 ML IVPB SCH ×3 (05:59→18:11)
[2018-01-19 06:02] VITALS: BP 155/93
--- NOTE | 2018-01-19 06:54 | RADIOLOGY IMAGING REPORT ---
FACILITY: [facility] [place] PATIENT NAME: Uri Banuelos : 1950 MR: [id number] V: [id number] EXAM DATE: ORDERING PHYSICIAN: MYKEL CHENG TECHNOLOGIST: Location: [facility] Patient: Uri Banuelos : 1950 Visit/Account:[id number] Date of Sevice: 01/19/2018 CHEST SINGLE AP COMPARISONS: None. ADDITIONAL PERTINENT HISTORY: Tachypnea FINDINGS: Cardiomediastinal silhouette: Negative. Pulmonary vasculature: Negative. Lung samuels: Decreased lung volumes with mild bibasilar atelectatic change. Pleural spaces: Negative. Osseous structures: Negative. Surrounding soft tissues: Negative. IMPRESSION: 1. Decreased lung volumes with bibasilar atelectatic change. Report Dictated By: Evin Angeles MD at 01/19/2018 6:49 AM Report E-Signed By: Evin Angeles MD at 01/19/2018 6:50 AM WSN:[id number]
[2018-01-19 07:36] VITALS: BP 152/91
[2018-01-19] MEDS ORDERED: LIDOCAINE MPF 1% 5 ML VIAL ONE (07:56)
[2018-01-19] MEDS ORDERED: NS 0.9% 20 ML SDV 0 ML ONE (07:56)
[2018-01-19] MEDS ORDERED: NS(*) 0.9% 10 ML VIAL 0 ML ONE (08:46)
[2018-01-19] MEDS: BROMFENAC SODIUM OD SCH (09:38)
[2018-01-19] MEDS: NICOTINE 14 MG/24 HR PATCH TD SCH (09:39)
--- NOTE | 2018-01-19 09:51 | Hospitalist Progress Note ---
Subjective Progress Notes Subjective He reports feeling improved this AM. Less dyspnea - "I coughed up some junk". Pain slightly better. Low grade temp, but it is also improved. Physical Exam Vital Signs Date Time Temp Pulse Resp B/P (MAP) Pulse Ox O2 Delivery O2 Flow Rate FiO2 01/19/18 07:36 92 Nasal Cannula 2.0 01/19/18 07:36 99.3 32 152/91 (111) 01/19/18 06:02 84 Intake and Output 01/20/18 07:00 Output Total 250 ml Balance -250 ml Output Urine Total 250 ml # Voids 1 General Appearance: Alert, Awake Cardiovascular: Regular Rate and Rhythm Respiratory: Other (fairly clear with some decreased breath sounds at bases) Chest: No Tenderness GI: Other (soft/slightly distended/a few BS are present) Extremities: Warm, Perfused Psych: Alert & Oriented X3 Result Diagram: 01/18/1854301/18/18543 Assessment and Plan Problems: (1) Acute pancreatitis Status: Acute Assessment & Plan: Acute pancreatitis. No definite etiology at this point. He has not had any alcohol for over three years. He does take simvastatin and fish oil. He also chews tobacco. His gallbladder has been removed and it did not appear he had a common duct stone on US or CT scan. However, his LFTs were elevated in an obstructive pattern. MRCP yesterday did show significant inflammatory changes, but no definite obstruction. WBC was up as well. He has been started on IV Primaxin due to concern he could potentially have infection. He has had PICC line placed, so will now start TPN. Will keep NPO today. If he continues to improve clinically, will start oral intake. Continue to watch labs. Exam Sepsis Risk: Sepsis Risk AYAKA CHENG MD Jan 19, 2018 09:51
[2018-01-19 10:14] LABS: PLATELET COUNT, AUTOMATED 96 K/uL (150-450)
[2018-01-19 11:07] VITALS: BP 156/94
[2018-01-19] MEDS ORDERED: [UNRECOGNIZED DRUG - OTHER] IV ONE (11:30)
[2018-01-19] MEDS ORDERED: PANTOPRAZOLE SOD 40 MG IV VIAL IVP ONE (12:40)
--- NOTE | 2018-01-19 14:08 | RADIOLOGY IMAGING REPORT ---
FACILITY: [facility] PATIENT NAME: Uri Banuelos : 1950 MR: [id number] V: [id number] EXAM DATE: ORDERING PHYSICIAN: MYKEL CHENG TECHNOLOGIST: Location: [facility] [place] Patient: Uri Banuelos : 1950 Visit/Account:[id number] Date of Sevice: 01/18/2018 Exam type: PICC LINE INSERTION, PICC LINE PLACEMENT History: hard stick, required for labs and fluids Comparison: None Findings: Informed consent was obtained. The patient's left arm was prepped and draped in usual sterile fashio n. Local anesthesia was accomplished with 1% lidocaine. Under sonographic and fluoroscopic guidance a 41 cm long trimmed 5 [place]odian double lumen power PICC was inserted via the patent left brachial vein with the distal tip resting in superior vena cava at the junction of the left innominate vein. Both lumens of power PICC were flushed with 5 mL of saline flush. Proximal portion PICC line was adhered the patient's arm the sterile dressing. The sonographic images were saved to PACS. The procedure w as accomplished without apparent complication. The fluoroscopy dose area product was 41.45 micro-Gra y per meter squared.. IMPRESSION: 1. Successful placement of a 41 cm long trimmed 5 [place]odian double lumen power PICC inserted via the pa tent left brachial vein with the distal tip resting in superior vena cava Report Dictated By: Tejal Irizarry MD at 01/19/2018 2:00 PM Report E-Signed By: Tejal Irizarry MD at 01/19/2018 2:03 PM WSN:[email or web address]
--- NOTE | 2018-01-19 14:08 | RADIOLOGY IMAGING REPORT ---
FACILITY: [facility] PATIENT NAME: Uri Banuelos : 1950 MR: [id number] V: [id number] EXAM DATE: ORDERING PHYSICIAN: MYKEL CHENG TECHNOLOGIST: Location: Patient: Uri Banuelos : 1950 Visit/Account:[id number] Date of Sevice: 01/18/2018 Exam type: PICC LINE INSERTION, PICC LINE PLACEMENT History: hard stick, required for labs and fluids Comparison: None Findings: Informed consent was obtained. The patient's left arm was prepped and draped in usual sterile fashio n. Local anesthesia was accomplished with 1% lidocaine. Under sonographic and fluoroscopic guidance a 41 cm long trimmed 5 [place] double lumen power PICC was inserted via the patent left brachial vein with the distal tip resting in superior vena cava at the junction of the left innominate vein. Both lumens of power PICC were flushed with 5 mL of saline flush. Proximal portion PICC line was adhered the patient's arm the sterile dressing. The sonographic images were saved to PACS. The procedure w as accomplished without apparent complication. The fluoroscopy dose area product was 41.45 micro-Gra y per meter squared.. IMPRESSION: 1. Successful placement of a 41 cm long trimmed 5 [place] double lumen power PICC inserted via the pa tent left brachial vein with the distal tip resting in superior vena cava Report Dictated By: Tejal Irizarry MD at 01/19/2018 2:00 PM Report E-Signed By: Tejal Irizarry MD at 01/19/2018 2:03 PM WSN:[email or web address]
[2018-01-19] MEDS: HYDROmorphone PCA 6 MG/30 ML IV PRN (15:07)
[2018-01-19 15:11] VITALS: BP 153/86
[2018-01-19] MEDS ORDERED: ENOXAPARIN 40 MG/0.4ML SYR SC SCH (16:00)
[2018-01-19] MEDS: ENOXAPARIN 40 MG/0.4ML SYR SC SCH (18:10)
[2018-01-19 20:10] VITALS: BP_SYST 153; BP_SYST 155; BP_DIAS 84; BP_DIAS 86
[2018-01-19] MEDS: AZELASTINE HCL 137 MCG ENA PRN (20:18)
[2018-01-20] MEDS: IMIPENEM/CILASTA(*) 500MG VIAL 500 MG in NS(*) 0.9% 100 ML BAG 100 ML IVPB SCH ×5 (00:11→23:46)
[2018-01-20 03:57] VITALS: BP 152/86
[2018-01-20 05:29] LABS: PLATELET COUNT, AUTOMATED 90 K/uL (150-450)
[2018-01-20 05:39] LABS: INR 1.2
[2018-01-20] MEDS ORDERED: KCL (*) 20 MEQ/100 ML PREMIX 100 ML IV ONE ×3 (06:00→20:00)
[2018-01-20] MEDS ORDERED: KCL 2 MEQ/ML 20 MEQ/10 ML VIAL 20 MEQ in NS(*) 0.9% 1000 ML BAG 1,000 ML IV PRN (06:00)
[2018-01-20] MEDS ORDERED: POTASSIUM CHLORIDE IV ONE (06:40)
[2018-01-20] MEDS ORDERED: SODIUM CHLORIDE IV ONE (06:40)
[2018-01-20 07:02] VITALS: BP 134/83
[2018-01-20] MEDS: PANTOPRAZOLE SOD 40 MG IV VIAL IVP SCH (08:18)
[2018-01-20] MEDS: NICOTINE 14 MG/24 HR PATCH TD SCH (08:19)
[2018-01-20] MEDS: BROMFENAC SODIUM OD SCH (08:20)
[2018-01-20] MEDS: AZELASTINE HCL 137 MCG ENA PRN ×2 (08:21→21:53)
[2018-01-20] MEDS: ARTIFICIAL TEARS OINT 7 GM 7 GM TUBE OP PRN ×2 (08:33→21:54)
--- NOTE | 2018-01-20 08:51 | Hospitalist Progress Note ---
Subjective Progress Notes Subjective The patient is feeling much better. His abdominal pain is much improved. Physical Exam Vital Signs Date Time Temp Pulse Resp B/P (MAP) Pulse Ox O2 Delivery O2 Flow Rate FiO2 01/20/18 07:10 93 Nasal Cannula 1.5 01/20/18 07:02 99.5 76 18 134/83 (100) Intake and Output 01/21/18 07:00 # Voids 1 General Appearance: Alert, Awake, No Acute Distress Neuro: No Gross deficits Eyes: PERRLA Cardiovascular: Regular Rate and Rhythm Respiratory: Other (Markedly decreased BS both bases, clear above.) GI: Soft and Non-Tender, Other (Less distended today.) Extremities: Warm, Perfused, Other (Dung hose in place, no edema.) Integumentary: Skin Intact without Lesion / Mass Psych: Appropriate Mood & Affect Result Diagram: 01/20/1851401/20/18514 Assessment and Plan Problems: (1) Acute pancreatitis Status: Acute Assessment & Plan: Acute pancreatitis. No definite etiology at this point. Lisinopril is associated with pancreatitis > 1% of the time. Simvastatin is associated with pancreatitis < 1% of the time. Will not restart these. If he needs an antihypertensive, will start metoprolol which is not associated with pancreatitis. He has not had any alcohol for over three years. He also takes fish oil and chews tobacco. He admits to a fairly high fat diet at home ( cookies and ice cream). His gallbladder has been removed and it did not appear he had a common duct stone on US or CT scan. However, his LFTs were elevated in an obstructive pattern. MRCP 01/18 did show significant inflammatory changes, but no definite obstruction. WBC was up as well. He was started on IV Primaxin due to concern he could potentially have infection. He has had PICC line placed , and is now on TPN. Over the past 24 hours, his WBC, lipase and LFTs have improved. His symptoms are also much improved. Will try clear liquids today. If he tolerates these, will stop TPN. He is on Lovenox for DVT prophylaxis. Time Spent on Plan of Care: < 30 min Exam Sepsis Risk: No Definite Risk MYKEL CHENG MD Jan 20, 2018 08:51
--- NOTE | 2018-01-20 10:34 | Medical Nutrition Therapy ---
Nutrition Anthropometrics Weight (Pounds): 178 Weight (Calculated Kilograms): 80.739 Hx Weight Loss: No Hx Weight Gain: Yes Celio Nutrition Score: Adequate Celio Nutrition Risk Score: 20 Dietary Referral Nutrition Risk Factors: Nutrition Risk Comment: Physical Findings Physical Appearance: Pt Ht unavailable in EMR Skin Appearance Skin Appearance: Edema Edema Location Modifier: Edema Location: Type of Edema: Degree of Edema: Gastrointestinal Symptoms GI Symtoms: Constipation, Change in Bowel Pattern Tube Present: Bowel Sounds: Recent Bowel Pattern: Stool Characteristics: Nutrition/Food History Pt admits to high fat diet - cookies and ice cream Nutritional Diagnosis Nutritional Risk Acuity 2: Pancreatitis Past Medical History: PMH significant for HTN, HLD, 3 episodes of acute pancreatitis over 17 years Nutritional Acuity: 2-Moderate Nutrition Diagnosis: Altered GI Function Nutrition Etiology: Physiological Causes Nutrition Problem/Etiology/Sym: recurrent pancreatitis Energy Requirement: 2180 (kcal/day (27 kcal/ kg - No recorded Ht.)) Protein Requirement: 88 (g/day (1.1 g per kg)) Fluid Requirement: 2400 (per day (30 mL/kg)) Diet Type: Clear Liquids Nutrition Intervention: Encourage intake, Incr diet as tolerated Nutritional Support Current Enteral / Parental: TPN Rate: Clinimix 4.5/25 @ 42mL/hr Current Calories: 1028 Current Protein: 43 Nutrition Monitoring & Eval Nutrition Goals: Eat 75-100% Meal RD Patient Assessment Time: [address] Assessment Type: RD Re-Assessment Patient Nutrition Acuity: 2-Moderate Follow Up Date: Jan 21, 2018 Nutritional Comment: Pt with a diagnosis of redcurrent pancreatitis with pancreatitis pseudocyst, HLD and HTN. Pt with nausea, no vomiting. Pt remains NPO since admit (01/17). Pt WBC and Hemoglobin are high. Pt lipase 5794. 4/7 Lipase decreased to 480, Alb 2.2, CRP 21.6, Hish AST/ALT, Low Ca+/K+. TPN started with Clinimix 4.25%-25% at 42mL/hr. At current rate of TPN, pt receiving 1028 Kcal and 43 grams protein per 24 hrs. This provides 47% of estimated Kcal needs and 49% of estimated protein needs. Started on clear liquid diet this AM. Monitor for tolerance and diet progression. AYANNA DIEHL Jan 20, 2018 10:34
[2018-01-20] MEDS ORDERED: NS(*) 0.9% 250 ML BAG 250 ML ONE (12:02)
[2018-01-20] MEDS ORDERED: [UNRECOGNIZED DRUG - OTHER] IV ONE (13:30)
[2018-01-20 14:54] VITALS: BP 142/82
[2018-01-20] MEDS: ENOXAPARIN 40 MG/0.4ML SYR SC SCH (17:31)
[2018-01-20 19:30] VITALS: BP 134/76
[2018-01-20 22:49] VITALS: BP 133/73
[2018-01-21] MEDS: KCL/NS* 20 MEQ/1000 ML PREMIX 1,000 ML IV PRN ×2 (02:34→19:24)
[2018-01-21 05:20] VITALS: BP 127/71
[2018-01-21] MEDS: IMIPENEM/CILASTA(*) 500MG VIAL 500 MG in NS(*) 0.9% 100 ML BAG 100 ML IVPB SCH ×4 (05:23→23:41)
[2018-01-21 05:44] LABS: PLATELET COUNT, AUTOMATED 83 K/uL (150-450)
[2018-01-21 07:12] VITALS: BP 129/76
[2018-01-21] MEDS: PANTOPRAZOLE SOD 40 MG IV VIAL IVP SCH (08:51)
[2018-01-21] MEDS: NICOTINE 14 MG/24 HR PATCH TD SCH (08:52)
[2018-01-21] MEDS: BROMFENAC SODIUM OD SCH (08:52)
[2018-01-21] MEDS: ARTIFICIAL TEARS OINT 7 GM 7 GM TUBE OP PRN (08:53)
[2018-01-21] MEDS: AZELASTINE HCL 137 MCG ENA PRN (08:53)
--- NOTE | 2018-01-21 10:52 | Hospitalist Progress Note ---
Subjective Progress Notes Subjective This patient was admitted for pancreatitis. He had no acute events overnight. Patient Complains of: Cardiovascular: No: Chest Pain Respiratory: No: Shortness of Breath Gastrointestinal: No Nausea, No Vomiting Physical Exam Vital Signs Date Time Temp Pulse Resp B/P (MAP) Pulse Ox O2 Delivery O2 Flow Rate FiO2 01/21/18 08:52 16 95 01/21/18 07:14 Nasal Cannula 1.0 01/21/18 07:12 99.3 66 129/76 (93) Intake and Output 01/22/18 07:00 Intake Total 830 ml Balance 830 ml Intake Oral 830 ml # Voids 1 Cardiovascular: Regular Rate and Rhythm Respiratory: Clear to Auscultation GI: Soft and Non-Tender Extremities: No Edema Integumentary: No Jaundice, No Cyanosis Result Diagram: 01/21/1851901/21/18519 Item Value Date Time Lipase 182 U/L 01/21/18519 Assessment and Plan Problems: (1) Acute pancreatitis Status: Acute Assessment & Plan: Acute pancreatitis. No definite etiology at this point. Lisinopril is associated with pancreatitis > 1% of the time. Simvastatin is associated with pancreatitis < 1% of the time. Will not restart these. If he needs an antihypertensive, will start metoprolol which is not associated with pancreatitis. He has not had any alcohol for over three years. He also takes fish oil and chews tobacco. He admits to a fairly high fat diet at home ( cookies and ice cream). His gallbladder has been removed and it did not appear he had a common duct stone on US or CT scan. However, his LFTs were elevated in an obstructive pattern. MRCP 01/18 did show significant inflammatory changes, but no definite obstruction. WBC was up as well. He was started on IV Primaxin due to concern he could potentially have infection. He has had PICC line placed , and is now on TPN. Over the past 24 hours, his WBC, lipase and LFTs have improved. His symptoms are also much improved. Will try clear liquids today. If he tolerates these, will stop TPN. He is on Lovenox for DVT prophylaxis.\ We have advanced his diet to regular today. Exam Sepsis Risk: No Definite Risk BRINDA HERRERA DO Jan 21, 2018 10:52
[2018-01-21 10:57] VITALS: BP 132/74
--- NOTE | 2018-01-21 11:36 | Medical Nutrition Therapy ---
Nutrition Anthropometrics Weight (Pounds): 178 Weight (Calculated Kilograms): 80.739 Hx Weight Loss: No Hx Weight Gain: Yes Celio Nutrition Score: Adequate Celio Nutrition Risk Score: 20 Dietary Referral Nutrition Risk Factors: Nutrition Risk Comment: Physical Findings Physical Appearance: Pt Ht unavailable in EMR Skin Appearance Skin Appearance: Edema Edema Location Modifier: Edema Location: Type of Edema: Degree of Edema: Gastrointestinal Symptoms GI Symtoms: Bloating Tube Present: Bowel Sounds: Recent Bowel Pattern: Stool Characteristics: Nutritional Diagnosis Nutritional Risk Acuity 1: TPN/PPN Nutritional Risk Acuity 2: Pancreatitis Past Medical History: PMH significant for HTN, HLD, 3 episodes of acute pancreatitis over 17 years Nutritional Acuity: 2-Moderate Nutrition Diagnosis: Altered GI Function Nutrition Etiology: Physiological Causes Nutrition Problem/Etiology/Sym: recurrent pancreatitis Energy Requirement: 2180 (kcal/day (27 kcal/ kg - No recorded Ht.)) Protein Requirement: 88 (g/day (1.1 g per kg)) Fluid Requirement: 2400 (per day (30 mL/kg)) Diet Type: Diet as Tolerated JOSE/REG Nutrition Intervention: Encourage intake, Incr diet as tolerated Food Dislikes: apple juice!!! Nutritional Support Current Enteral / Parental: TPN Rate: Clinimix 4.5/25 @ 42mL/hr Current Calories: 1028 Current Protein: 43 Nutrition Monitoring & Eval Nutrition Goals: Eat 75-100% Meal RD Patient Assessment Time: [address] Assessment Type: RD Re-Assessment Patient Nutrition Acuity: 2-Moderate Follow Up Date: Jan 23, 2018 Nutritional Comment: Pt with a diagnosis of redcurrent pancreatitis with pancreatitis pseudocyst, HLD and HTN. Pt with nausea, no vomiting. Pt remains NPO since admit (01/17). Pt WBC and Hemoglobin are high. Pt lipase 5794. 01/20 Lipase decreased to 480, Alb 2.2, CRP 21.6, Hish AST/ALT, Low Ca+/K+. TPN started with Clinimix 4.25%-25% at 42mL/hr. At current rate of TPN, pt receiving 1028 Kcal and 43 grams protein per 24 hrs. This provides 47% of estimated Kcal needs and 49% of estimated protein needs. Started on clear liquid diet this AM. Monitor for tolerance and diet progression. 01/21 Alb 2.1, Lipase 182, CRP 19.9, K+ 3.1. Clear liquid meals tolerated and consumed at 25-75%. Diet progression to JOSE this AM. Continues to receive TPN. Follow labs, encourage intake. AYANNA DIEHL Jan 21, 2018 11:36
[2018-01-21 15:36] VITALS: BP 140/81
[2018-01-21] MEDS: ENOXAPARIN 40 MG/0.4ML SYR SC SCH (17:32)
[2018-01-21 19:58] VITALS: BP 144/83
[2018-01-21 23:42] VITALS: BP 152/84
[2018-01-22 03:05] VITALS: BP 143/78
[2018-01-22] MEDS: IMIPENEM/CILASTA(*) 500MG VIAL 500 MG in NS(*) 0.9% 100 ML BAG 100 ML IVPB SCH ×2 (05:52→12:36)
[2018-01-22 06:14] LABS: PLATELET COUNT, AUTOMATED 96 K/uL (150-450)
[2018-01-22] MEDS ORDERED: KCL (*) 20 MEQ/100 ML PREMIX 100 ML IV ONE (07:30)
[2018-01-22 08:28] VITALS: BP 151/84
[2018-01-22] MEDS: NICOTINE 14 MG/24 HR PATCH TD SCH (08:48)
[2018-01-22] MEDS: PANTOPRAZOLE SOD 40 MG IV VIAL IVP SCH (08:48)
[2018-01-22] MEDS: BROMFENAC SODIUM OD SCH (08:48)
[2018-01-22] MEDS: ARTIFICIAL TEARS OINT 7 GM 7 GM TUBE OP PRN (08:49)
[2018-01-22] MEDS: AZELASTINE HCL 137 MCG ENA PRN (08:49)
--- NOTE | 2018-01-22 08:59 | Hospitalist Progress Note ---
Subjective Progress Notes Subjective He has no complaints this morning. Patient Complains of: Cardiovascular: No: Chest Pain Respiratory: No: Shortness of Breath Physical Exam Vital Signs Date Time Temp Pulse Resp B/P (MAP) Pulse Ox O2 Delivery O2 Flow Rate FiO2 01/22/18 08:31 94 01/22/18 08:28 Room Air 01/22/18 08:28 98.3 63 16 151/84 (106) 01/22/18 03:05 1.0 Intake and Output 01/23/18 07:00 # Voids 1 General Appearance: Alert, Awake, No Acute Distress, Afebrile Cardiovascular: Regular Rate and Rhythm Respiratory: No Respiratory Distress, Clear to Auscultation GI: Soft and Non-Tender, Other (bowel sounds present) Psych: Alert & Oriented X3, Appropriate Mood & Affect Result Diagram: 01/22/1852 01/22/18551 Assessment and Plan Problems: (1) Acute pancreatitis Status: Acute Assessment & Plan: Acute pancreatitis. No definite etiology at this point. Lisinopril is associated with pancreatitis > 1% of the time. Simvastatin is associated with pancreatitis < 1% of the time. Will not restart these. If he needs an antihypertensive, will start losartan which is not associated with pancreatitis. Metoprolol will not be started secondary to bradycardia. He has not had any alcohol for over three years. He also takes fish oil and chews tobacco. He admits to a fairly high fat diet at home (cookies and ice cream). His gallbladder has been removed and it did not appear he had a common duct stone on US or CT scan. However, his LFTs were elevated in an obstructive pattern. MRCP 01/18 did show significant inflammatory changes, but no definite obstruction. WBC was up as well. He was started on IV Primaxin due to concern he could potentially have infection. During admission, his WBC, lipase and LFTs have improved. His symptoms are also much improved. He has been tolerating foods for two days. (2) HTN (hypertension) Status: Chronic Assessment & Plan: Secondary to pancreatitis, we have stopped his lisinopril. We have restarted him on Losartan 50mg daily, which has no risk of pancreatitis. (3) Hyperlipidemia Status: Chronic Assessment & Plan: We have stopped his simvastatin because of increased risk of pancreatitis. He will not be restarted on any regimen now for his cholesterol. He will follow up with Dr. Pryor for further recommendation. Exam Sepsis Risk: No Definite Risk DAWN NASH [employer] Jan 22, 2018 08:59
[2018-01-22] MEDS ORDERED: LOSARTAN POTASSIUM 50 MG TAB PO SCH (10:20)
[2018-01-22] MEDS ORDERED: KCL (*) 20 MEQ/100 ML PREMIX 100 ML ONE (11:12)
[2018-01-22 11:54] VITALS: BP 144/88
[2018-01-22] MEDS ORDERED: POTASSIUM CHL 20 MEQ TABCR PO ONE (14:50)
[2018-01-22] MEDS ORDERED: POTA20TA94 PO (14:52)
[2018-01-22] MEDS ORDERED: LOSA50TA72 PO (14:52)
--- NOTE | 2018-01-22 15:01 | Hospitalist Depart ---
Discharge Summary Reason for Hosp/Final Diag: (1) Acute pancreatitis Status: Acute Hospital Course & Plan: Acute pancreatitis. No definite etiology at this point. Lisinopril is associated with pancreatitis > 1% of the time. Simvastatin is associated with pancreatitis < 1% of the time. Will not restart these. If he needs an antihypertensive, will start losartan which is not associated with pancreatitis. Metoprolol will not be started secondary to bradycardia. He has not had any alcohol for over three years. He also takes fish oil and chews tobacco. He admits to a fairly high fat diet at home (cookies and ice cream). His gallbladder has been removed and it did not appear he had a common duct stone on US or CT scan. However, his LFTs were elevated in an obstructive pattern. MRCP 01/18 did show significant inflammatory changes, but no definite obstruction. WBC was up as well. He was started on IV Primaxin due to concern he could potentially have infection. During admission, his WBC, lipase and LFTs have improved. His symptoms are also much improved. He has been tolerating foods for two days. (2) HTN (hypertension) Status: Chronic Hospital Course & Plan: Secondary to pancreatitis, we have stopped his lisinopril. We have restarted him on Losartan 50mg daily, which has no risk of pancreatitis. (3) Hyperlipidemia Status: Chronic Hospital Course & Plan: We have stopped his simvastatin because of increased risk of pancreatitis. He will not be restarted on any regimen now for his cholesterol. He will follow up with Dr. Goodwin for further recommendation. Departure Latest Vital Signs Vital Signs 01/22/18 11:54 Temp 99.6 Pulse 67 Resp 24 B/P (MAP) 144/88 (106) Pulse Ox 92 O2 Delivery Room Air Weight (Pounds): 178 Result Diagram: 01/22/18 0552 01/22/18 1331 Condition: Improved Discharge: Home, Self Care Discharge Instructions Home Meds Reported Medications [place]-3 Fatty Acids/Fish Oil (FISH OIL 1,000 MG CAPSULE) 1 Each Capsule, 2 EACH PO QDAY, CAPSULE 01/16/18 Cholecalciferol (Vitamin D3) (VITAMIN D3) 1,000 Unit Tablet, 2 TAB PO QDAY, TAB 01/16/18 Aspirin (ASPIRIN EC) 81 Mg Tablet.dr, 81 MG PO QDAY, TAB 01/16/18 Simvastatin (SIMVASTATIN) 20 Mg Tablet, 20 MG PO HS, TAB 01/16/18 Lisinopril (LISINOPRIL) 10 Mg Tablet, 10 MG PO QDAY, TAB 01/16/18 Discontinued Reported Medications Ketorolac Tromethamine (Toradol) 10 Mg Tab, 10 MG PO QID, #12 08/22/07 Acetaminophen/Codeine (Tylenol #3 300-30 Mg) 1 Ea Tab, 2 EA PO Q4H 1, #30 1-2 TABLETS 08/22/07 Ranitidine Hcl (Zantac) 150 Mg Capsule, 150 MG PO 08/10/07 Acetaminophen (Tylenol) 325 Mg Tab, 325 MG PO Q4H 08/10/07 Diet: Regular Activity: As Tolerated Copies to: KENDRA GOODWIN DO Venous Thromboembolism Antithrombotics Is Pt On Any Antithrombotics?: No (Large amount of inflammatory change with his acute pancreatitis) DAWN NASH [employer] Jan 22, 2018 15:01
== END 2018-01-22 16:10 | disposition home or self-care (01) | DRG 440 ==
LOC: ER 19:50 → MED 01-17 00:24
PROVIDERS: ADMIT Internal Medicine; ATTEND Internal Medicine
PROC: 02HV33Z Insertion of Infusion Device into Superior Vena Cava, Percutaneous Approach (ICD-10-PCS; principal; 2018-01-18)
PROC: B548ZZA Ultrasonography of Superior Vena Cava, Guidance (ICD-10-PCS; 2018-01-18)
DX: K85.90 Acute pancreatitis without necrosis or infection, unspecified (principal); F17.220 Nicotine dependence, chewing tobacco, uncomplicated; I10 Essential (primary) hypertension; T44.7X5A Adverse effect of beta-adrenoreceptor antagonists, initial encounter; Z90.49 Acquired absence of other specified parts of digestive tract; R00.1 Bradycardia, unspecified; E78.5 Hyperlipidemia, unspecified; Y92.230 Patient room in hospital as the place of occurrence of the external cause
CPT/HCPCS: 36415; 36569; 36600; 71045; 74177; 74183; 76705; 76937; 80320; 81001; 82040; 82150; 82247; 82310; 82374; 82435; 82565; 82947; 83605; 83690; 83735; 84075; 84132; 84155; 84295; 84450; 84460; 84478; 84484; 84520; 85025; 85610; 85730; 86140; 86677; 87040; 87088; 93005; 96361; 96374; 96375; 96376; 99285; A9577; C1751; C9113; J0743; J1170; J1644; J1650; J2001; J2060; J2405; J2550; J3010; J3480; J7030; J7050; Q9967; S0028

== ENCOUNTER → 2018-01-16 | Outpatient (CLI) | payer MEDICARE, BC ==
[~2018-01-16] MED LIST: ACE3 PO; ACE325 PO; ASPI81TA86 PO; CHOL10005 PO; KET10 PO; LISI-362 PO; LOSA50TA72 PO; OMEG-11 PO; POTA20TA94 PO; RANI150C14 PO; SIMV-49 PO
== END ==
LOC: AMB 18:47
PROVIDERS: ATTEND Nurse Practitioner
DX: R10.84 Generalized abdominal pain (principal); R00.1 Bradycardia, unspecified; R11.0 Nausea
CPT/HCPCS: A0425; A0433

== ENCOUNTER 2018-02-03 12:44 | Inpatient (IN) | payer MEDICARE, BC ==
[~2018-02-03] VITALS: Ht 177.8 cm; Wt 76.7 kg
[~2018-02-03 12:44] MED LIST changes: +ASPI81TA86 PO; +CHOL10005 PO; +LISI-362 PO; +LOSA50TA72 PO; +OMEG-11 PO; +POTA20TA94 PO; +SIMV-49 PO
--- NOTE | 2018-02-03 13:05 | ER Report ---
History and Physical Time Seen By MD: 13:04 Hx. of Stated Complaint: ABDOMINAL PAIN FOR A FEW WEEKS. WAS HERE ON THE 4TH. NEVER REALLY WENT AWAY HPI/ROS CHIEF COMPLAINT: Abdominal pain HISTORY OF PRESENT ILLNESS: This is a 67-year-old male who presents to the emergency department for abdominal pain. Patient was recently admitted to the hospital for pancreatitis patient states that after about a week in the hospital his enzymes resolve diffuse feeling better and discharged. Patient states that yesterday he began to have some epigastric, right upper and lower quadrant pain. Patient states that this is similar to what he had previously however he's having more right sided pain even more into the right lower quadrant. Patient states the pain fluctuates between 6 and 7 when he is just sitting there to 8 or 9 when he coughs or sneezes. Patient denies nausea, vomiting, aches, chills, chest pain or shortness of breath. Denies diarrhea or urinary symptoms. REVIEW OF SYSTEMS: Constitutional: No fever, no chills. Eyes: No discharge. ENT: No sore throat. Cardiovascular: No chest pain, no palpitations. Respiratory: No cough, no shortness of breath. Gastrointestinal: As above. Genitourinary: No hematuria. Musculoskeletal: No back pain. Skin: No rashes. Neurological: No headache. Allergies: Coded Allergies: No Known Drug Allergies (Unverified , 02/03/18) Home Meds Active Scripts Losartan Potassium (LOSARTAN POTASSIUM) 50 Mg Tablet, 50 MG PO QDAY, #30 TAB Prov:DAWN NASHP 01/22/18 Reported Medications [place]-3 Fatty Acids/Fish Oil (FISH OIL 1,000 MG CAPSULE) 1 Each Capsule, 2 EACH PO QDAY, CAPSULE 01/16/18 Cholecalciferol (Vitamin D3) (VITAMIN D3) 1,000 Unit Tablet, 2 TAB PO QDAY, TAB 01/16/18 Aspirin (ASPIRIN EC) 81 Mg Tablet.dr, 81 MG PO QDAY, TAB 01/16/18 Discontinued Scripts Potassium Chloride (POTASSIUM CHLORIDE) 20 Meq Tab.er.prt, 20 MEQ PO QDAY, #7 TAB Prov:DAWN NASH [facility] 01/22/18 Past Medical/Surgical History Patient has a past medical and surgical history of rheumatic fever, hypertension , hypercholesterolemia, pancreatitis, gallbladder disease, cholecystectomy, wears glasses, no alcohol use since 2014, skin cancer, left knee scope, tonsillectomy, cataract surgery. Hx Smoking: No Hx Substance Use Disorder: No Hx Alcohol Use: Yes (none since 2014) Constitutional Vital Sign - Last 24 Hours 02/03/18 02/03/18 02/03/18 02/03/18 12:49 12:53 12:59 13:00 Temp 98.6 Pulse 81 81 Resp 14 B/P (MAP) 135/77 135/77 (96) 116/76 (89) Pulse Ox 94 96 O2 Delivery Room Air 02/03/18 02/03/18 02/03/18 02/03/18 13:14 13:29 13:30 14:00 Pulse 81 74 B/P (MAP) 113/77 (89) 121/79 (93) Pulse Ox 96 96 02/03/18 02/03/18 14:30 15:45 Pulse 62 Resp 14 B/P (MAP) ???/??? (1665) 124/77 (93) Pulse Ox 95 O2 Delivery Room Air Intake and Output 02/03/18 02/03/18 02/04/18 15:00 23:00 07:00 Intake Total 500 ml Balance 500 ml Physical Exam General Appearance: The patient is alert, has no immediate need for airway protection and no signs of toxicity. Eyes: Pupils equal and round no pallor or injection. ENT, Mouth: Mucous membranes are moist. Respiratory: There are no retractions, lungs are clear to auscultation. Cardiovascular: Regular rate and rhythm, no murmurs, clicks or rubs. Gastrointestinal: Abdomen is soft, tender to the epigastrium, right upper and lower quadrants, no masses, bowel sounds normal. Neurological: Alert and oriented 4. Moving all extremities. No focal neural deficits. Following all commands. Skin: Warm and dry, no rashes. Musculoskeletal: Neck is supple non tender. Extremities are nontender, nonswollen and have full range of motion. DIFFERENTIAL DIAGNOSIS: After history and physical exam differential diagnosis was considered for abdominal pain including but not limited to appendicitis, cholecystitis, pancreatitis, gastritis and urinary tract infection. Medical Decision Making Data Points Result Diagram: 02/03/18 1311 02/03/18 1311 Laboratory Hematology Test 02/03/18 13:11 Red Blood Count 4.39 M/uL (4.00-5.60) Mean Corpuscular Volume 90.9 fL (80.0-96.0) Mean Corpuscular Hemoglobin 31.2 pg (26.0-33.0) Mean Corpuscular Hemoglobin Concent 34.3 g/dL (32.0-36.0) Red Cell Distribution Width 13.9 % (11.5-14.5) Mean Platelet Volume 8.4 fL (7.2-11.1) Neutrophils (%) (Auto) 74.1 % (39.4-72.5) Lymphocytes (%) (Auto) 13.7 % (17.6-49.6) Monocytes (%) (Auto) 9.1 % (4.1-12.4) Eosinophils (%) (Auto) 2.5 % (0.4-6.7) Basophils (%) (Auto) 0.6 % (0.3-1.4) Nucleated RBC Relative Count (auto) 0.0 /100WBC Neutrophils # (Auto) 6.6 K/uL (2.0-7.4) Lymphocytes # (Auto) 1.2 K/uL (1.3-3.6) Monocytes # (Auto) 0.8 K/uL (0.3-1.0) Eosinophils # (Auto) 0.2 K/uL (0.0-0.5) Basophils # (Auto) 0.1 K/uL (0.0-0.1) Nucleated RBC Absolute Count (auto) 0.00 K/uL Urine Color Yellow Urine Clarity Clear Urine pH 7.0 pH (4.8-9.5) Urine Specific [place] 1.006 Urine Protein Negative mg/dL (NEGATIVE) Urine Glucose (UA) Negative mg/dL (NEGATIVE) Urine Ketones Negative mg/dL (NEGATIVE) Urine Blood Negative (NEGATIVE) Urine Nitrite Negative (NEGATIVE) Urine Bilirubin Negative (NEGATIVE) Urine Urobilinogen Negative mg/dL (0.2-1.9) Urine Leukocyte Esterase Negative (NEGATIVE) Urine RBC <1 /HPF (0-2/HPF) Urine WBC <1 /HPF (0-5/HPF) Urine Squamous Epithelial Cells None /LPF (</=FEW) Urine Bacteria Negative /HPF (NONE-FEW) Urine Mucus None /HPF (NONE-FEW) Sodium Level 139 mmol/L (137-145) Potassium Level 3.5 mmol/L (3.5-5.0) Chloride Level 102 mmol/L (98-107) Carbon Dioxide Level 24 mmol/L (22-30) Blood Urea Nitrogen 12 mg/dl (9-21) Creatinine 0.90 mg/dl (0.66-1.25) Glomerular Filtration Rate Calc > 60.0 Random Glucose 103 mg/dl (75-110) Calcium Level 9.1 mg/dl (8.4-10.2) Total Bilirubin 1.2 mg/dl (0.2-1.3) Aspartate Amino Transf (AST/SGOT) 24 U/L (0-35) Alanine Aminotransferase (ALT/SGPT) 33 U/L (0-56) Alkaline Phosphatase 123 U/L (0-126) Total Protein 7.0 gm/dl (6.3-8.2) Albumin 3.5 g/dl (3.5-5.0) Amylase Level 189 U/L (0-110) Lipase 1196 U/L (23-300) Chemistry Test 02/03/18 13:11 White Blood Count 8.9 k/uL (4.5-11.0) Red Blood Count 4.39 M/uL (4.00-5.60) Hemoglobin 13.7 g/dL (14.0-18.0) Hematocrit 39.9 % (42.0-52.0) Mean Corpuscular Volume 90.9 fL (80.0-96.0) Mean Corpuscular Hemoglobin 31.2 pg (26.0-33.0) Mean Corpuscular Hemoglobin Concent 34.3 g/dL (32.0-36.0) Red Cell Distribution Width 13.9 % (11.5-14.5) Platelet Count 334 K/uL (150-450) Mean Platelet Volume 8.4 fL (7.2-11.1) Neutrophils (%) (Auto) 74.1 % (39.4-72.5) Lymphocytes (%) (Auto) 13.7 % (17.6-49.6) Monocytes (%) (Auto) 9.1 % (4.1-12.4) Eosinophils (%) (Auto) 2.5 % (0.4-6.7) Basophils (%) (Auto) 0.6 % (0.3-1.4) Nucleated RBC Relative Count (auto) 0.0 /100WBC Neutrophils # (Auto) 6.6 K/uL (2.0-7.4) Lymphocytes # (Auto) 1.2 K/uL (1.3-3.6) Monocytes # (Auto) 0.8 K/uL (0.3-1.0) Eosinophils # (Auto) 0.2 K/uL (0.0-0.5) Basophils # (Auto) 0.1 K/uL (0.0-0.1) Nucleated RBC Absolute Count (auto) 0.00 K/uL Urine Color Yellow Urine Clarity Clear Urine pH 7.0 pH (4.8-9.5) Urine Specific [place] 1.006 Urine Protein Negative mg/dL (NEGATIVE) Urine Glucose (UA) Negative mg/dL (NEGATIVE) Urine Ketones Negative mg/dL (NEGATIVE) Urine Blood Negative (NEGATIVE) Urine Nitrite Negative (NEGATIVE) Urine Bilirubin Negative (NEGATIVE) Urine Urobilinogen Negative mg/dL (0.2-1.9) Urine Leukocyte Esterase Negative (NEGATIVE) Urine RBC <1 /HPF (0-2/HPF) Urine WBC <1 /HPF (0-5/HPF) Urine Squamous Epithelial Cells None /LPF (</=FEW) Urine Bacteria Negative /HPF (NONE-FEW) Urine Mucus None /HPF (NONE-FEW) Glomerular Filtration Rate Calc > 60.0 Calcium Level 9.1 mg/dl (8.4-10.2) Total Bilirubin 1.2 mg/dl (0.2-1.3) Aspartate Amino Transf (AST/SGOT) 24 U/L (0-35) Alanine Aminotransferase (ALT/SGPT) 33 U/L (0-56) Alkaline Phosphatase 123 U/L (0-126) Total Protein 7.0 gm/dl (6.3-8.2) Albumin 3.5 g/dl (3.5-5.0) Amylase Level 189 U/L (0-110) Lipase 1196 U/L (23-300) Urinalysis Test 02/03/18 13:11 Urine Color Yellow Urine Clarity Clear Urine pH 7.0 pH (4.8-9.5) Urine Specific [place] 1.006 Urine Protein Negative mg/dL (NEGATIVE) Urine Glucose (UA) Negative mg/dL (NEGATIVE) Urine Ketones Negative mg/dL (NEGATIVE) Urine Blood Negative (NEGATIVE) Urine Nitrite Negative (NEGATIVE) Urine Bilirubin Negative (NEGATIVE) Urine Urobilinogen Negative mg/dL (0.2-1.9) Urine Leukocyte Esterase Negative (NEGATIVE) Urine RBC <1 /HPF (0-2/HPF) Urine WBC <1 /HPF (0-5/HPF) Urine Squamous Epithelial Cells None /LPF (</=FEW) Urine Bacteria Negative /HPF (NONE-FEW) Urine Mucus None /HPF (NONE-FEW) EKG/Imaging Imaging Location: [facility] [place] Patient: Uri Banuelos : 1950 Visit/Account:[id number] Date of Sevice: 02/03/2018 Examination: CHEST PA AND LAT Comparison: 01/19/2018. History: Right-sided abdominal pain. Findings: Cardiac and hilar contour size is within normal limits. Lung aeration has improved in the interval with no new or enlarging consolidation or nodule. No pneumothorax, edema, or effusion. Osseous structures are intact. IMPRESSION: Improved lung aeration with no evidence of acute cardiopulmonary disease. Report Dictated By: Stephen Becker MD at 02/03/2018 1:52 PM Report E-Signed By: Stephen Becker MD at 02/03/2018 1:54 PM [id number] ED Course/Re-evaluation Clinical Indication for ER IV: Hydration, IV Access ED Course Patient was admitted to room. A history and physical were obtained. Differential diagnoses were considered. An IV was started. A CBC, CMP and amylase and lipase were obtained. 500 mL of normal saline was given. 50 g of IV fentanyl. Negative UA. 1 Lortab was given. Laboratory studies unremarkable except for the lipase which was 1196. There was a significant reduction in the patient's pain however when he did get up to ambulate did increase his epigastric discomfort. Negative two-view chest x-ray. I did review these labs and a chest x-ray with the patient and his . I did tell him that I feel that since his pain is decreased that he'll that he would be to go home on a clear liquid diets take pain medications as prescribed and follow-up with his primary care provider early this next week. Patient states that he is concerned that his pain would increase with the ambulation and was nervous about the pain increasing. I did end up talking to Dr. Vivar the hospitalist as noted below he' s accepted the patient into his services for pancreatitis the patient will be admitted to the medical surgical floor for observation. Patient was in agreement with this plan of care. 02/03/2018 3:25:54 pm I did speak with Dr. Vivar the hospitalist on-call regarding the patient's case he's accepted the patient into his services patient will be admitted to the hospital for pancreatitis. Decision to Disposition Date: Feb 03, 2018 Decision to Disposition Time: 15:36 Depart Departure Latest Vital Signs Vital Signs Date Time Temp Pulse Resp B/P (MAP) Pulse Ox O2 Delivery O2 Flow Rate FiO2 02/03/18 15:45 62 14 124/77 (93) 95 Room Air 02/03/18 12:49 98.6 Impression: Primary Impression: Acute pancreatitis Condition: Improved Disposition: Admitted from ER Problem Qualifiers Primary Impression: Acute pancreatitis Pancreatitis type: unspecified pancreatitis type Acute pancreatitis complication: unspecified Qualified Codes: K85.90 - Acute pancreatitis without necrosis or infection, unspecified GÓMEZ GUSMANP-BC Feb 03, 2018 13:05
[2018-02-03] MEDS ORDERED: NS(*) 0.9% 500 ML BAG 500 ML IV ONE (13:17)
[2018-02-03] MEDS ORDERED: fentaNYL CITR 100 MCG/2 ML AMP IVP ONE (13:20)
[2018-02-03] MEDS ORDERED: ONDANSETRON 4 MG/2 ML VIAL IVP ONE (13:20)
[2018-02-03 13:36] LABS: PLATELET COUNT, AUTOMATED 334 K/uL (150-450)
--- NOTE | 2018-02-03 13:59 | RADIOLOGY IMAGING REPORT ---
[place] [facility] [place] Uri Banuelos : 1950 MR: [id number] V: [id number] EXAM DATE: ORDERING PHYSICIAN: GÓMEZ GUSMAN TECHNOLOGIST: [place] [facility] [place] Banuel[place] : 1950 Visit/Account:[id number] Date of Sevice: 02/03/2018 Examination: CHEST PA AND LAT Comparison: 01/19/2018. History: Right-sided abdominal pain. Findings: Cardiac and hilar contour size is within normal limits. Lung aeration has improved in the i nterval with no new or enlarging consolidation or nodule. No pneumothorax, edema, or effusion. Osseou s structures are intact. IMPRESSION: Improved lung aeration with no evidence of acute cardiopulmonary disease. Report Dictated By: Stephen Becker MD at 02/03/2018 1:52 PM Report E-Signed By: Stephen Becker MD at 02/03/2018 1:54 PM [id number]
[2018-02-03] MEDS ORDERED: APAP/HYDROCODONE 325/5 TAB PO ONE (14:20)
[2018-02-03 15:59] VITALS: BP 135/79
--- NOTE | 2018-02-03 16:55 | History & Physical ---
History of Present Illness Chief Complaint Abdominal Pain History of Present Illness Mr. Banuelos is a 67-year-old male with PMH of HTN, Hypertriglyceridemia, Vit.D deficiency and recent admission in early January with Acute Pancreatitis with very high Lipase levels, treated and discharged. Today he presented again to the ER with abdominal pain. He denied any N/V/D/CP/cough/SOB etc. Pain was started yesterday and got worse today. His first veer episode of pancreatitis was in 2007 after his cholecystectomy. He denies any recent use of smoking, alcohol or any new medication. He takes Losartan 50mg po qd and it is class-1b drug to cause pancreatitis. History Home Meds Active Scripts Losartan Potassium (LOSARTAN POTASSIUM) 50 Mg Tablet, 50 MG PO QDAY, #30 TAB Prov:DAWN NASH [employer] INS[employer] SALES REPRESENTATIVE 01/22/18 Reported Medications [place]-3 Fatty Acids/Fish Oil (FISH OIL 1,000 MG CAPSULE) 1 Each Capsule, 2 EACH PO QDAY, CAPSULE 01/16/18 Cholecalciferol (Vitamin D3) (VITAMIN D3) 1,000 Unit Tablet, 2 TAB PO QDAY, TAB 01/16/18 Aspirin (ASPIRIN EC) 81 Mg Tablet.dr, 81 MG PO QDAY, TAB 01/16/18 Discontinued Scripts Potassium Chloride (POTASSIUM CHLORIDE) 20 Meq Tab.er.prt, 20 MEQ PO QDAY, #7 TAB Prov:DAWN NASH [employer] INS[employer] SALES REPRESENTATIVE 01/22/18 Allergies: Coded Allergies: No Known Drug Allergies (Unverified , 02/03/18) Hx Smoking: No Caffeine Intake: Soda Caffeine/Cups Per Day: 2-3 cups Hx Alcohol Use: Yes (none since 2014) Hx Substance Use Disorder: No Review of Systems Constitutional: No Fever, No Weight Loss, No Chills Neurological: No Confusion, No Weakness, No Dizziness Cardiovascular: No Chest Pain, No Palpitations Respiratory: No Shortness of Breath, No Cough Gastrointestinal: No Nausea, No Vomiting, No Diarrhea, No Dysphagia, No Constipation, No Hematemesis, No Melena, Abdominal Pain Genitourinary: No Dysuria, No Hematuria Musculoskeletal: No Pain, No Sprain, No Strain Psychiatric: No Depression, No Anxiety Exam Vital Signs Vital Signs Date Time Temp Pulse Resp B/P (MAP) Pulse Ox O2 Delivery O2 Flow Rate FiO2 02/03/18 15:59 98.6 61 16 135/79 (97) 93 Room Air General Appearance: Alert, Awake, No Acute Distress, Afebrile Neuro: No Gross deficits Eyes: PERRLA ENT: Normal Cardiovascular: Normal Rhythm & Peripheral Pulses Respiratory: No Respiratory Distress GI: Abd Soft and Non-Tender (mild tenderness with deep palpation epigastric and RLQ area, No rebound and guarding) : Normal Musculoskeletal: No Weakness/Pain Extremities: Soft and Non Tender Integumentary: Skin Intact without Lesion / Mass Psych: Alert & Oriented X3, Appropriate Mood & Affect Medical Decision Making Data Points Result Diagram: 02/03/18 1311 02/03/18 1311 EKG / Imaging Imaging reviewed Pre-Admit Course ED Medications Fentanyl and hydrocodone and IVF Medical Record Review: Yes Assessment and Plan Problems: (1) Acute pancreatitis Status: Acute Assessment & Plan: I will admit the patient to medical floor for acute on chronic pancreatitis. I will keep him NPO I will start IVF normal saline 250ml/h with [id number] I will check his alcohol and triglyceride levels I will start him on Morphine sulphate 2-4mg IV q4h prn Zofran 4mg IV q6h for nausea prn I will hold his Losartan for now and use CCB if he requires Early ambulation for his DVT prophylaxis and I will also use Protonix 40mg IV q daily (2) Hypertriglyceridemia Status: Chronic Assessment & Plan: I will check his Triglyceride levels I will continue his Fish oil after checking his levels if he requires (3) HTN (hypertension) Status: Chronic Assessment & Plan: I will watch his BP closely and use CCB if his BP increases I will also hold his Vit.D for now. Condition Guarded Time Spent on Plan of Care: > 30 min Copies to: KENDRA GOODWIN DO Venous Thromboembolism VTE Risk Physician Assess for VTE Risk: Yes Patient's VTE Risk: Low VTE Diagnostic Test 2 Days Prior to Admit: No Antithrombotics Is Pt On Any Antithrombotics?: No Exam Sepsis Risk: No Definite Risk Problem Qualifiers (1) Acute pancreatitis: Pancreatitis type: unspecified pancreatitis type Acute pancreatitis complication: unspecified Qualified Codes: K85.90 - Acute pancreatitis without necrosis or infection, unspecified BERNARDA LYNN MD Feb 03, 2018 16:55
[2018-02-03] MEDS ORDERED: MORPHINE 2 MG/ML SYR IVP PRN (17:45)
[2018-02-03] MEDS ORDERED: ONDANSETRON 4 MG/2 ML VIAL IVP PRN (17:45)
[2018-02-03] MEDS ORDERED: ACETAMINOPHEN 325 MG TAB PO PRN (17:50)
[2018-02-03] MEDS ORDERED: LORA10CA3 PO (18:37)
[2018-02-03] MEDS ORDERED: FLUT16SP19 NS (18:37)
[2018-02-03] MEDS: KCL 2 MEQ/ML 20 MEQ/10 ML VIAL 10 MEQ in NS(*) 0.9% 1000 ML BAG 1,000 ML IV SCH (20:07)
[2018-02-03] MEDS: PANTOPRAZOLE SOD 40 MG IV VIAL IVP SCH (20:12)
[2018-02-04 00:11] VITALS: BP 106/64
[2018-02-04] MEDS: KCL 2 MEQ/ML 20 MEQ/10 ML VIAL 10 MEQ in NS(*) 0.9% 1000 ML BAG 1,000 ML IV SCH ×4 (00:11→17:41)
[2018-02-04 04:24] VITALS: BP 131/77
[2018-02-04] MEDS ORDERED: FLUTICASONE PROP 110 MCG INH INH SCH (06:00)
[2018-02-04 07:31] LABS: PLATELET COUNT, AUTOMATED 226 K/uL (150-450)
[2018-02-04 08:14] VITALS: BP 123/74
[2018-02-04] MEDS: PANTOPRAZOLE SOD 40 MG IV VIAL IVP SCH ×2 (08:16→20:23)
[2018-02-04] MEDS: FLUTICASONE PROP 0.05% 16 GM SCH (08:18)
[2018-02-04] MEDS: BROMFENAC SODIUM OD SCH (08:47)
[2018-02-04] MEDS ORDERED: CHOLECALCIFEROL 1000 UNIT TAB PO SCH (09:00)
[2018-02-04] MEDS ORDERED: ASPIRIN 81 MG CHEW CHEW SCH (09:00)
[2018-02-04] MEDS ORDERED: OMEGA-3 500 MG CAP PO SCH (09:00)
[2018-02-04 11:29] VITALS: Ht 177.8 cm; Wt 76.7 kg
--- NOTE | 2018-02-04 11:42 | Hospitalist Progress Note ---
Subjective Progress Notes Subjective 02/03: Mr. Banuelos is a 67-year-old male with PMH of HTN, Hypertriglyceridemia, Vit.D deficiency and recent admission in early January with Acute Pancreatitis with very high Lipase levels, treated and discharged. Today he presented again to the ER with abdominal pain. He denied any N/V/D/CP/cough/SOB etc. Pain was started yesterday and got worse today. His first veer episode of pancreatitis was in 2007 after his cholecystectomy. He denies any recent use of smoking, alcohol or any new medication. He takes Losartan 50mg po qd and it is class-1b drug to cause pancreatitis. 02/04: The patient is afebrile and hemodynamically stable without any significant abdominal pain. He denies any N/V/D etc. His Lipase improved to 615 from 1196 Patient Complains of: Neurological: No: Confusion, Weakness, Dizziness Cardiovascular: No: Chest Pain, Palpitations Respiratory: No: Cough, Congestion, Shortness of Breath Gastrointestinal: No Nausea, No Vomiting Genitourinary: No Dysuria, No Hematuria Musculoskeletal: No: Pain, Sprain, Strain Physical Exam Vital Signs Date Time Temp Pulse Resp B/P (MAP) Pulse Ox O2 Delivery O2 Flow Rate FiO2 02/04/18 10:13 Room Air 02/04/18 08:14 98.6 63 18 123/74 (90) 91 Intake and Output 02/05/18 07:00 Intake Total 976 ml Balance 976 ml Intake IV Total 976 ml General Appearance: Alert, Awake, No Acute Distress, Afebrile Neuro: No Gross deficits Eyes: PERRLA ENT: Normal Cardiovascular: Normal Rhythm & Peripheral Pulses Respiratory: No Respiratory Distress GI: Soft and Non-Tender Extremities: Soft and Non Tender Integumentary: Skin Intact without Lesion / Mass Psych: Alert & Oriented X3, Appropriate Mood & Affect Result Diagram: 02/04/18 0716 02/04/18 0716 Assessment and Plan Problems: (1) Acute pancreatitis Status: Acute Assessment & Plan: 02/03: I will admit the patient to medical floor for acute on chronic pancreatitis. I will keep him NPO I will start IVF normal saline 250ml/h with [id number] I will check his alcohol and triglyceride levels I will start him on Morphine sulphate 2-4mg IV q4h prn Zofran 4mg IV q6h for nausea prn I will hold his Losartan for now and use CCB if he requires Early ambulation for his DVT prophylaxis and I will also use Protonix 40mg IV q daily 02/04: I will try clear liquids today and advance diet as tolerated I will get Lipase level in am I will arrange GI follow up before his d/c. I will decrease his IVF to NS with KCL 10meq at 80ml/h I have advised ambulation (2) Hypertriglyceridemia Status: Chronic Assessment & Plan: I will check his Triglyceride levels I will continue his Fish oil after checking his levels if he requires 02/04: His TG levels are normal in 80's (3) HTN (hypertension) Status: Chronic Assessment & Plan: 02/03: I will watch his BP closely and use CCB if his BP increases I will also hold his Vit.D for now. 02/04: His BP is normal and I will stop his Losartan cause it can cause pancreatitis. Time Spent on Plan of Care: < 30 min Copies to: KENDRA GOODWIN DO Exam Sepsis Risk: No Definite Risk Problem Qualifiers (1) Acute pancreatitis: Pancreatitis type: unspecified pancreatitis type Acute pancreatitis complication: unspecified Qualified Codes: K85.90 - Acute pancreatitis without necrosis or infection, unspecified BERNARDA LYNN MD Feb 04, 2018 11:42
--- NOTE | 2018-02-04 11:43 | Medical Nutrition Therapy ---
Nutrition Anthropometrics Height (Inches): 70.00 Height (Calculated Centimeters: 177.666056 Weight (Pounds): 169 Weight (Calculated Kilograms): 76.731 BMI Calculated: 24.25 Celio Nutrition Score: Adequate Celio Nutrition Risk Score: 19 Dietary Referral Nutrition Risk Factors: TPN/PPN Nutrition Risk Comment: Physical Findings Physical Appearance: BMI 24 Skin Appearance Skin Appearance: Edema Edema Location Modifier: Edema Location: Type of Edema: Degree of Edema: Gastrointestinal Symptoms GI Symtoms: Appetite Changes Tube Present: Bowel Sounds: Recent Bowel Pattern: Stool Characteristics: Nutritional Diagnosis Nutritional Risk Acuity 2: Pancreatitis Past Medical History: PMH significant for HTN, HLD, 3 episodes of acute pancreatitis over 17 years, cholecystectomy Nutritional Acuity: 2-Moderate Nutrition Diagnosis: Inadequate Food Intake Nutrition Etiology: Physiological Causes Nutrition Problem/Etiology/Sym: Inadequate oral intake related to physiological causes as evidenced by recent hospitalization for acute pancreatitis and npo status Energy Requirement: 2000 ([id number]) Protein Requirement: 76 (76-83 g (1-1.1 g/kg)) Fluid Requirement: 2280 (30 ml/kg) Diet Type: Clear Liquids Nutrition Intervention: Incr diet as tolerated Nutrition Monitoring & Eval RD Patient Assessment Time: [address] Assessment Type: RD Assessment Patient Nutrition Acuity: 2-Moderate Follow Up Date: Feb 07, 2018 Nutritional Comment: 02/04 Pt readmitted with acute pancreatitis. During last admit (01/20/18), pt was on TPN to meet nutr needs. Diet recently progressed from NPO to clears with no intake yet. Notable labs include low H/H, glc 67, total pro 5.1, alb 2.4, amylase 189 and lipase improved from 1196 to 615. Will cont to monitor clinical progression and diet advancement. GENNA NEWELL Feb 04, 2018 11:43
[2018-02-04 11:45] VITALS: BP 117/74
[2018-02-04 14:55] VITALS: BP 137/82
[2018-02-04] MEDS ORDERED: KCL 2 MEQ/ML 20 MEQ/10 ML VIAL 10 MEQ in NS(*) 0.9% 1000 ML BAG 1,000 ML IV SCH (16:30)
[2018-02-04 20:21] VITALS: BP 134/72
[2018-02-05 05:30] VITALS: BP 135/75
[2018-02-05] MEDS: KCL 2 MEQ/ML 20 MEQ/10 ML VIAL 10 MEQ in NS(*) 0.9% 1000 ML BAG 1,000 ML IV SCH (05:30)
[2018-02-05 07:04] VITALS: BP 132/79
[2018-02-05] MEDS: BROMFENAC SODIUM OD SCH (08:32)
[2018-02-05] MEDS: FLUTICASONE PROP 0.05% 16 GM SCH (08:32)
[2018-02-05] MEDS: PANTOPRAZOLE SOD 40 MG IV VIAL IVP SCH (08:33)
--- NOTE | 2018-02-05 10:17 | Hospitalist Depart ---
Discharge Summary Reason for Hosp/Final Diag: (1) Acute pancreatitis Status: Acute Hospital Course & Plan: He was admitted for acute pancreatitis. He was kept NPO and advanced his diet. He has now tolerated low fat diet for two days. He will follow a low fat diet at home. He will meet with hr internship prior to discharge for ideas for his diet. He also will follow up with gastroenterology in [place]. We have stopped his Losartan secondary to acute pancreatitis. (2) HTN (hypertension) Status: Chronic Hospital Course & Plan: His BP has been normal without treatment and we have stopped his Losartan there less than 1% risk it could cause pancreatitis. He will follow up with Dr. Goodwin regarding his blood pressure. Departure Latest Vital Signs Vital Signs 02/05/18 07:04 Temp 98.4 Pulse 53 Resp 18 B/P (MAP) 132/79 (96) Pulse Ox 91 O2 Delivery Room Air Weight (Pounds): 169 Weight (Ounces): 2.6 Result Diagram: 02/04/1871502/04/18715 Condition: Improved Discharge: Home, Self Care Discharge Instructions Home Meds Active Scripts Losartan Potassium (LOSARTAN POTASSIUM) 50 Mg Tablet, 50 MG PO QDAY, #30 TAB Prov:DAWN NASHP 01/22/18 Reported Medications Fluticasone Prop 50 Mcg Ns (FLONASE 50 MCG NS) 16 Gm [place].susp, 1-2 SPRAY NS QDAY, BOT 02/03/18 Loratadine (CLARITIN) 10 Mg Capsule, 10 MG PO QDAY, CAPSULE 02/03/18 [place]-3 Fatty Acids/Fish Oil (FISH OIL 1,000 MG CAPSULE) 1 Each Capsule, 2 EACH PO QDAY, CAPSULE 01/16/18 Cholecalciferol (Vitamin D3) (VITAMIN D3) 1,000 Unit Tablet, 2 TAB PO QDAY, TAB 01/16/18 Aspirin (ASPIRIN EC) 81 Mg Tablet.dr, 81 MG PO QDAY, TAB 01/16/18 Discontinued Scripts Potassium Chloride (POTASSIUM CHLORIDE) 20 Meq Tab.er.prt, 20 MEQ PO QDAY, #7 TAB Prov:DAWN NASH AUDIO TECHNICIAN 01/22/18 Diet: Low Fat Activity: As Tolerated Copies to: VINCENT LOMBARDI MD; KENDRA GOODWIN DO Venous Thromboembolism Antithrombotics Is Pt On Any Antithrombotics?: No Problem Qualifiers (1) Acute pancreatitis: Pancreatitis type: unspecified pancreatitis type Acute pancreatitis complication: unspecified Qualified Codes: K85.90 - Acute pancreatitis without necrosis or infection, unspecified DAWN NASH AUDIO TECHNICIAN Feb 05, 2018 10:17
--- NOTE | 2018-02-05 13:34 | Medical Nutrition Therapy ---
Nutritional Education Nutrition Education Topic: Other (Low Fat Diet) Learning Barriers: Hx Of Non-Compliance Learning Readiness: Eager Teaching Methods: Discussion, Handout Response to Teaching: Verbalize understanding Teaching Recipient: Patient, Significant Other () Nutrition Monitoring & Eval Nutrition Goals: Eat 50-100% Meal Nutrition Follow-Up: Fair Intake RD Patient Assessment Time: [address] Assessment Type: RD Education Patient Nutrition Acuity: 2-Moderate Follow Up Date: Feb 07, 2018 Nutritional Comment: 02/04 Pt readmitted with acute pancreatitis. During last admit (01/20/18), pt was on TPN to meet nutr needs. Diet recently progressed from NPO to clears with no intake yet. Notable labs include low H/H, glc 67, total pro 5.1, alb 2.4, amylase 189 and lipase improved from 1196 to 615. Will cont to monitor clinical progression and diet advancement. 02/05 Pt and requested diet education for pancreatitis prior to discharge. Putty Glazer provided pt with fat-restricted diet educaiton as well as sample menu for a fat-restricted diet. Putty Glazer discussed with pt tips for drinking water and cutting back fried and baked goods as well as chips and ice cream. Pt and ammeable to suggestions for improvement and encouraged to make changes at home. Both and pt verbalized understanding of diet education and expressed no further questions or concerns. -MARY ANN DAVILA Feb 05, 2018 12:32
== END 2018-02-05 11:00 | disposition home or self-care (01) | DRG 440 ==
LOC: ER 12:59 → MED 15:32
PROVIDERS: ADMIT Specialist; ATTEND Specialist
DX: K85.90 Acute pancreatitis without necrosis or infection, unspecified (principal); I10 Essential (primary) hypertension; K21.9 Gastro-esophageal reflux disease without esophagitis; E78.1 Pure hyperglyceridemia; Z90.49 Acquired absence of other specified parts of digestive tract; E55.9 Vitamin D deficiency, unspecified; Z85.828 Personal history of other malignant neoplasm of skin
CPT/HCPCS: 36415; 71046; 80320; 81001; 82040; 82150; 82247; 82310; 82374; 82435; 82565; 82947; 83690; 84075; 84132; 84155; 84295; 84450; 84460; 84478; 84520; 85025; 99285; C9113; J2270; J2405; J3010; J3480; J7030; J7040

== ENCOUNTER 2018-03-20 18:02 | Inpatient (IN) | payer MEDICARE, BC ==
[~2018-03-20] VITALS: Ht 177.8 cm; Wt 68.0 kg
[~2018-03-20 18:02] MED LIST changes: +FLUT16SP19 NS; +LORA10CA3 PO
--- NOTE | 2018-03-20 18:10 | ER Report ---
History and Physical Time Seen By MD: 18:10 HPI/ROS CHIEF COMPLAINT: Epigastric pain HISTORY OF PRESENT ILLNESS: 67-year-old male presents with onset of abdominal pain yesterday. It became much worse at 10 AM this morning. Patient's had 2 recent admissions here for pancreatitis in January, 01/22 and 02/03. Patient states he has an appointment to see Dr. Semaj Pan, GI specialist for ERCP this next Week. Patient notes nausea but no vomiting. He describes 8/10 epigastric pain radiating to his back. He's had no diarrhea. REVIEW OF SYSTEMS: Respiratory: No cough, no dyspnea. Cardiovascular: No chest pain, no palpitations. Gastrointestinal: As above Musculoskeletal: As above Allergies: Coded Allergies: No Known Drug Allergies (Unverified , 03/20/18) Home Meds Reported Medications Cholecalciferol (Vitamin D3) (VITAMIN D) 5,000 Unit Tablet, 5000 UNIT PO QDAY 03/20/18 Fluticasone Prop 50 Mcg Ns (FLONASE 50 MCG NS) [address] [place].susp, 1-2 SPRAY NS QDAY, BOT 02/03/18 Loratadine (CLARITIN) 10 Mg Capsule, 10 MG PO QDAY, CAPSULE 02/03/18 Aspirin (ASPIRIN EC) 81 Mg Tablet.dr, 81 MG PO QDAY, TAB 01/16/18 Discontinued Reported Medications Cholecalciferol (Vitamin D3) (VITAMIN D3) 1,000 Unit Tablet, 2 TAB PO QDAY, TAB 01/16/18 Past Medical/Surgical History History of pancreatitis, unclear etiology Reviewed Nurses Notes: Yes Old Medical Records Reviewed: Yes Hx Smoking: No Hx Substance Use Disorder: No Hx Alcohol Use: Yes (none since 2014) Constitutional Vital Sign - Last 24 Hours 03/20/18 03/20/18 03/20/18 03/20/18 18:09 18:14 18:30 18:32 Temp 98.9 Pulse 51 49 Resp 20 B/P (MAP) 160/93 160/93 (115) 145/91 (109) Pulse Ox 97 98 O2 Delivery Room Air 03/20/18 03/20/18 19:00 19:02 Pulse 51 B/P (MAP) 140/88 (105) Pulse Ox 95 Physical Exam General Appearance: The patient is alert, has no immediate need for airway protection and no current signs of toxicity. Mild distress, slightly pale appearing HEENT: Pupils equal and round no injection. Oropharynx without redness or exudate, mucous members are moist Respiratory: Chest is non tender, lungs are clear to auscultation. Cardiac: regular rate and rhythm Gastrointestinal: Abdomen is soft, moderate epigastric tenderness, some guarding but no rebound, no masses, bowel sounds normal. Musculoskeletal: Neck: Neck is supple and non tender. Extremities have full range of motion and are non tender. No edema Skin: No rashes or lesions. DIFFERENTIAL DIAGNOSIS: After history and physical exam differential diagnosis was considered for abdominal pain including but not limited to appendicitis, cholecystitis, gastritis and crit otitis, recurrent pancreatitis and urinary tract infection. Medical Decision Making Data Points Result Diagram: 03/21/18 0541 03/21/18 0541 Laboratory Hematology Test 03/20/18 18:08 03/20/18 18:38 Urine Color Straw Urine Clarity Clear Urine pH 7.0 pH (4.8-9.5) Urine Specific [place] 1.004 Urine Protein Negative mg/dL (NEGATIVE) Urine Glucose (UA) Negative mg/dL (NEGATIVE) Urine Ketones Negative mg/dL (NEGATIVE) Urine Blood Negative (NEGATIVE) Urine Nitrite Negative (NEGATIVE) Urine Bilirubin Negative (NEGATIVE) Urine Urobilinogen Negative mg/dL (0.2-1.9) Urine Leukocyte Esterase Negative (NEGATIVE) Urine RBC None /HPF (0-2/HPF) Urine WBC <1 /HPF (0-5/HPF) Urine Squamous Epithelial Cells None /LPF (</=FEW) Urine Bacteria Negative /HPF (NONE-FEW) Urine Mucus None /HPF (NONE-FEW) Total Bilirubin 0.5 mg/dl (0.2-1.3) Aspartate Amino Transf (AST/SGOT) 21 U/L (0-35) Alanine Aminotransferase (ALT/SGPT) 28 U/L (0-56) Alkaline Phosphatase 74 U/L (0-126) Total Protein 6.2 gm/dl (6.3-8.2) Albumin 3.6 g/dl (3.5-5.0) Amylase Level 88 U/L (0-110) Chemistry Test 03/20/18 18:08 03/20/18 18:38 Urine Color Straw Urine Clarity Clear Urine pH 7.0 pH (4.8-9.5) Urine Specific [place] 1.004 Urine Protein Negative mg/dL (NEGATIVE) Urine Glucose (UA) Negative mg/dL (NEGATIVE) Urine Ketones Negative mg/dL (NEGATIVE) Urine Blood Negative (NEGATIVE) Urine Nitrite Negative (NEGATIVE) Urine Bilirubin Negative (NEGATIVE) Urine Urobilinogen Negative mg/dL (0.2-1.9) Urine Leukocyte Esterase Negative (NEGATIVE) Urine RBC None /HPF (0-2/HPF) Urine WBC <1 /HPF (0-5/HPF) Urine Squamous Epithelial Cells None /LPF (</=FEW) Urine Bacteria Negative /HPF (NONE-FEW) Urine Mucus None /HPF (NONE-FEW) Total Bilirubin 0.5 mg/dl (0.2-1.3) Aspartate Amino Transf (AST/SGOT) 21 U/L (0-35) Alanine Aminotransferase (ALT/SGPT) 28 U/L (0-56) Alkaline Phosphatase 74 U/L (0-126) Total Protein 6.2 gm/dl (6.3-8.2) Albumin 3.6 g/dl (3.5-5.0) Amylase Level 88 U/L (0-110) Urinalysis Test 03/20/18 18:08 Urine Color Straw Urine Clarity Clear Urine pH 7.0 pH (4.8-9.5) Urine Specific [place] 1.004 Urine Protein Negative mg/dL (NEGATIVE) Urine Glucose (UA) Negative mg/dL (NEGATIVE) Urine Ketones Negative mg/dL (NEGATIVE) Urine Blood Negative (NEGATIVE) Urine Nitrite Negative (NEGATIVE) Urine Bilirubin Negative (NEGATIVE) Urine Urobilinogen Negative mg/dL (0.2-1.9) Urine Leukocyte Esterase Negative (NEGATIVE) Urine RBC None /HPF (0-2/HPF) Urine WBC <1 /HPF (0-5/HPF) Urine Squamous Epithelial Cells None /LPF (</=FEW) Urine Bacteria Negative /HPF (NONE-FEW) Urine Mucus None /HPF (NONE-FEW) ED Course/Re-evaluation Clinical Indication for ER IV: Hydration, IV Access ED Course Patient was admitted to an examination room. H&P was done. The differential diagnoses was considered. Patient with 2 previous episodes of pancreatitis. Likely has pancreatitis again. Diagnostic evaluation is undertaken. Patient is a peripheral IV established. He is medicated with Zofran and fentanyl. His diagnostic studies show a mildly elevated lipase of 555. Patient was given the option of going home with Zofran and Percocet for symptomatically relief. However, patient recalls his previous admissions where he required significant care and would like to be admitted. Case was discussed with Dr. Oliva hospitalist on-call, who accepts the patient for admission. 03/20/2018 7:12:20 pm case discussed with Dr. NARAYAN Oliva hospitalist, who accepts the patient for admission for treatment of his epigastric and pancreatic pain. Decision to Disposition Date: Mar 20, 2018 Decision to Disposition Time: 18:16 Depart Departure Latest Vital Signs Vital Signs Date Time Temp Pulse Resp B/P (MAP) Pulse Ox O2 Delivery O2 Flow Rate FiO2 03/20/18 19:02 51 95 03/20/18 19:00 140/88 (105) 03/20/18 18:09 98.9 20 Room Air Impression: Primary Impression: Acute pancreatitis Condition: Improved Disposition: Admitted from ER Problem Qualifiers Primary Impression: Acute pancreatitis Pancreatitis type: unspecified pancreatitis type Acute pancreatitis complication: unspecified Qualified Codes: K85.90 - Acute pancreatitis without necrosis or infection, unspecified CHELO SPRINGER DO Mar 20, 2018 18:10
[2018-03-20] MEDS ORDERED: NS(*) 0.9% 1000 ML BAG 1,000 ML IV ONE (18:13)
[2018-03-20] MEDS ORDERED: fentaNYL CITR 100 MCG/2 ML AMP IVP ONE (18:15)
[2018-03-20] MEDS ORDERED: ONDANSETRON 4 MG/2 ML VIAL IVP ONE (18:15)
[2018-03-20 18:52] LABS: PLATELET COUNT, AUTOMATED 125 K/uL (150-450)
[2018-03-20 20:49] VITALS: BP 161/91
[2018-03-20] MEDS ORDERED: CHOL500045 PO (21:11)
[2018-03-20] MEDS ORDERED: PROMETHAZINE 25 MG/ML 1 ML AMP IVP PRN (21:35)
[2018-03-20] MEDS ORDERED: INFLUENZA VIRUS VAC 0.5 ML SYR IM ONLY ONE (21:35)
--- NOTE | 2018-03-20 21:40 | History & Physical ---
History of Present Illness Chief Complaint Abdominal pain History of Present Illness This patient presented to the emergency room complaining of abdominal pain. He has a history of recurrent pancreatitis over the last several years. He is scheduled for an ERCP next week. History Problems: (1) Acute pancreatitis Status: Acute (2) History of cholecystectomy Status: Resolved (3) History of tonsillectomy Status: Resolved (4) S/P bilateral cataract extraction Status: Resolved Home Meds Reported Medications Cholecalciferol (Vitamin D3) (VITAMIN D) 5,000 Unit Tablet, 5000 UNIT PO QDAY 03/20/18 Fluticasone Prop 50 Mcg Ns (FLONASE 50 MCG NS) 16 Gm [place].susp, 1-2 SPRAY NS QDAY, BOT 02/03/18 Loratadine (CLARITIN) 10 Mg Capsule, 10 MG PO QDAY, CAPSULE 02/03/18 Aspirin (ASPIRIN EC) 81 Mg Tablet.dr, 81 MG PO QDAY, TAB 01/16/18 Discontinued Reported Medications Cholecalciferol (Vitamin D3) (VITAMIN D3) 1,000 Unit Tablet, 2 TAB PO QDAY, TAB 01/16/18 Allergies: Coded Allergies: No Known Drug Allergies (Unverified , 03/20/18) Patient History: FH: heart disease FATHER, , Age:82 MOTHER, , Age:60 years and older BROTHER OR SISTER FH: hypertension BROTHER OR SISTER Hx Smoking: No Exposure to Second Hand Smoke?: No Caffeine Intake: Soda Caffeine/Cups Per Day: 2-3 cups Hx Alcohol Use: Yes (none since 2014) Hx Substance Use Disorder: No Review of Systems All Systems Reviewed/Normal: Yes, Except as Noted Gastrointestinal: Abdominal Pain Exam Vital Signs Vital Signs Date Time Temp Pulse Resp B/P (MAP) Pulse Ox O2 Delivery O2 Flow Rate FiO2 03/20/18 20:49 98.5 50 16 161/91 (114) 96 Room Air Neuro: No Gross deficits Eyes: PERRLA Cardiovascular: Regular Rate and Rhythm Respiratory: Clear to Auscultation GI: Other (Tenderness in epigastric region.) Extremities: No Edema Integumentary: No Jaundice, No Cyanosis Medical Decision Making Data Points Result Diagram: 03/20/18183703/20/181837 Item Value Date Time Lipase 555 U/L H 03/20/181837 Assessment and Plan Problems: (1) Acute pancreatitis Status: Acute Assessment & Plan: He did present with recurrent abdominal pain and his lipase was found to be elevated. We have placed him NPO and started pain medications. A repeat lipase is ordered for the morning. He is already scheduled to follow up next with gastroenterology and is scheduled for an ERCP. Venous Thromboembolism Antithrombotics Is Pt On Any Antithrombotics?: No Exam Sepsis Risk: No Definite Risk Problem Qualifiers (1) Acute pancreatitis: Pancreatitis type: unspecified pancreatitis type Acute pancreatitis complication: unspecified Qualified Codes: K85.90 - Acute pancreatitis without necrosis or infection, unspecified BRINDA HERRERA DO Mar 20, 2018 21:40
[2018-03-20] MEDS: NS(*) 0.9% 1000 ML BAG 1,000 ML IV PRN (22:05)
[2018-03-20] MEDS: MORPHINE 4 MG/ML SDV IVP PRN (22:22)
[2018-03-20 22:36] VITALS: BP 158/90
[2018-03-21] MEDS: MORPHINE 4 MG/ML SDV IVP PRN ×3 (05:26→21:55)
[2018-03-21 05:27] VITALS: BP 143/79
[2018-03-21 05:54] LABS: PLATELET COUNT, AUTOMATED 115 K/uL (150-450)
[2018-03-21] MEDS: NS(*) 0.9% 1000 ML BAG 1,000 ML IV PRN ×2 (06:08→14:05)
[2018-03-21 07:33] VITALS: BP 135/87
[2018-03-21 08:17] VITALS: Ht 177.8 cm; Wt 68.0 kg
[2018-03-21] MEDS: ENOXAPARIN 40 MG/0.4ML SYR SC SCH (08:39)
[2018-03-21 10:43] VITALS: BP 148/85
--- NOTE | 2018-03-21 11:15 | Hospitalist Progress Note ---
Subjective Progress Notes Subjective He reports less pain. Some return of appetite. Physical Exam Vital Signs Date Time Temp Pulse Resp B/P (MAP) Pulse Ox O2 Delivery O2 Flow Rate FiO2 03/21/18 10:43 98.3 48 20 148/85 (106) 96 Room Air Intake and Output 03/22/18 06:59 # Voids 1 General Appearance: Alert, Awake Cardiovascular: Regular Rate and Rhythm Respiratory: Clear to Auscultation GI: Other (soft, but with tenderness over upper abdomen/BS persent/no guarding or rebound) Extremities: Warm, Perfused Psych: Alert & Oriented X3 Result Diagram: 03/21/1841 03/21/18 0541 Item Value Date Time Lipase 395 U/L H 03/21/18 0541 Assessment and Plan Problems: (1) Acute pancreatitis Status: Acute Assessment & Plan: He did present with recurrent abdominal pain and his lipase was found to be slightly elevated. We initially placed him NPO and started IV pain medications. Repeat lipase is improved this morning (395). Will try to start him on clear liquids today. Will continue IV fluids. Re-check labs in AM. He is scheduled to follow up next week with gastroenterology/pancreatology in [place], [place]. Exam Sepsis Risk: No Definite Risk Problem Qualifiers (1) Acute pancreatitis: Pancreatitis type: unspecified pancreatitis type Acute pancreatitis complication: unspecified Qualified Codes: K85.90 - Acute pancreatitis without necrosis or infection, unspecified AYAKA CHENG MD Mar 21, 2018 11:15
[2018-03-21 14:44] VITALS: BP 139/89
[2018-03-21 19:48] VITALS: BP 164/90
[2018-03-22] MEDS: NS(*) 0.9% 1000 ML BAG 1,000 ML IV PRN ×3 (00:52→21:59)
[2018-03-22 05:27] VITALS: BP 141/79
[2018-03-22 05:47] LABS: PLATELET COUNT, AUTOMATED 95 K/uL (150-450)
[2018-03-22 08:02] VITALS: BP 147/83
[2018-03-22] MEDS: ENOXAPARIN 40 MG/0.4ML SYR SC SCH (09:13)
--- NOTE | 2018-03-22 10:59 | Hospitalist Progress Note ---
Subjective Progress Notes Subjective The patient feels better today. Abdominal pain is minimal. He has tolerated clear liquids. Physical Exam Vital Signs Date Time Temp Pulse Resp B/P (MAP) Pulse Ox O2 Delivery O2 Flow Rate FiO2 03/22/18 08:15 Room Air 03/22/18 08:02 98.1 45 16 147/83 (104) 95 General Appearance: Alert, Awake, No Acute Distress Neuro: No Gross deficits Cardiovascular: Regular Rate and Rhythm Respiratory: Clear to Auscultation GI: Soft and Non-Tender Extremities: Warm, Perfused Psych: Appropriate Mood & Affect Result Diagram: 03/22/1852703/22/18527 Assessment and Plan Problems: (1) Acute pancreatitis Status: Acute Assessment & Plan: He did present with recurrent abdominal pain and his lipase was found to be slightly elevated. We initially placed him NPO and started IV pain medications. Repeat lipase 03/21 was improved (395). He was started on clear liquids. He remains symptomatically improved today but his lipase did increase some (582). Will continue IV fluids and clear liquids today. Re-check labs in AM. He is scheduled to follow up next week with gastroenterology/ pancreatology in [place], [place]. Time Spent on Plan of Care: < 30 min Exam Sepsis Risk: No Definite Risk Problem Qualifiers (1) Acute pancreatitis: Pancreatitis type: unspecified pancreatitis type Acute pancreatitis complication: unspecified Qualified Codes: K85.90 - Acute pancreatitis without necrosis or infection, unspecified MYKEL CHENG MD Mar 22, 2018 10:59
[2018-03-22 11:42] VITALS: BP 146/87
--- NOTE | 2018-03-22 14:04 | Medical Nutrition Therapy ---
Nutrition Anthropometrics Height (Inches): 70.00 Height (Calculated Centimeters: 177.622532 Weight (Pounds): 150 Weight (Calculated Kilograms): 68.124 Celio Nutrition Score: Probably Inadequate Celio Nutrition Risk Score: 19 Dietary Referral Nutrition Risk Factors: TPN/PPN Nutrition Risk Comment: Physical Findings Physical Appearance: BMI 21.5 WNR Skin Appearance Skin Appearance: Edema Edema Location Modifier: Edema Location: Type of Edema: Degree of Edema: Gastrointestinal Symptoms GI Symtoms: Appetite Changes Tube Present: Bowel Sounds: Recent Bowel Pattern: Stool Characteristics: Soft, Formed Nutritional Diagnosis Nutritional Risk Acuity 2: Pancreatitis Nutritional Risk Acuity 3: Fair Appetite Past Medical History: PMH significant for HTN, HLD, 3 episodes of acute pancreatitis over 17 years, cholecystectomy, hypertriglyceridemia Nutritional Acuity: 2-Moderate Nutrition Problem/Etiology/Sym: Impaired nutrient utilization related to compromised pancreatic function as evidenced lipase 582, BUN 7 and alb 3.1. Energy Requirement: 1851 ([place] ) Protein Requirement: 75 (1.1g/kg high protein diet recommended for pancreatitis ) Fluid Requirement: 2040 (30ml/kg) Diet Type: Clear Liquids Nutrition Intervention: Encourage intake, Change diet (low regular diet) Nutrition Monitoring & Eval Nutrition Goals: Eat 75-100% Meal RD Patient Assessment Time: [address] Assessment Type: RD Assessment Patient Nutrition Acuity: 2-Moderate Follow Up Date: Mar 25, 2018 Nutritional Comment: 03/21 Pt admitted for pancreatitis. Pt came in with severe abdominal pain.Pt has been scheduled for ERCP next week. Pt is on regular diet with no intake recorded at this time. Pt has elevated lipase (395). Will continue to monitor pt progress, labs and encourage low fat diet. MT 03/22 Pt diet order had changed to clear liquid diet, pt has consumed 100% of his meals. Pt reports less pain, and appetite has returned. Lipase still remains elevated (582), BUN (7), and alb (3.1). Once pt advances to regular diet, pt may benefit from nutrition education regarding a low fat and high protein diet for his pancreatitis. Continue to monitor pt clinical progress, labs and encourage intake. MT EDELTEETEE Mar 22, 2018 10:33
[2018-03-22 18:24] VITALS: BP 163/83
[2018-03-23 02:41] VITALS: BP 138/87
[2018-03-23 06:18] LABS: PLATELET COUNT, AUTOMATED 116 K/uL (150-450)
[2018-03-23 07:30] VITALS: BP 155/100
[2018-03-23] MEDS: ENOXAPARIN 40 MG/0.4ML SYR SC SCH (09:03)
--- NOTE | 2018-03-23 09:05 | Hospitalist Depart ---
Discharge Summary Reason for Hosp/Final Diag: (1) Acute pancreatitis Status: Acute Hospital Course & Plan: He did present with recurrent abdominal pain and his lipase was found to be slightly elevated. We initially placed him NPO and started IV pain medications. Repeat lipase 03/21 was improved (395). He was started on clear liquids. He remained symptomatically improved 03/22 but his lipase did increase some (582). He has decreased Lipase to 394 and denies any pain. He is scheduled to follow up Monday next week with gastroenterology/ pancreatology in [place], [place]. Departure Latest Vital Signs Vital Signs 03/23/18 03/23/18 07:30 07:32 Temp 97.7 Pulse 44 Resp 14 B/P (MAP) 155/100 (118) Pulse Ox 93 O2 Delivery Room Air Weight (Pounds): 150 Weight (Ounces): 3.0 Result Diagram: 03/23/1851203/23/18512 Condition: Improved Discharge: Home, Self Care Discharge Instructions Home Meds Reported Medications Cholecalciferol (Vitamin D3) (VITAMIN D) 5,000 Unit Tablet, 5000 UNIT PO QDAY 03/20/18 Fluticasone Prop 50 Mcg Ns (FLONASE 50 MCG NS) 16 Gm [place].susp, 1-2 SPRAY NS QDAY, BOT 02/03/18 Loratadine (CLARITIN) 10 Mg Capsule, 10 MG PO QDAY, CAPSULE 02/03/18 Aspirin (ASPIRIN EC) 81 Mg Tablet.dr, 81 MG PO QDAY, TAB 01/16/18 Discontinued Reported Medications Cholecalciferol (Vitamin D3) (VITAMIN D3) 1,000 Unit Tablet, 2 TAB PO QDAY, TAB 01/16/18 Diet: Low Fat Activity: As Tolerated Venous Thromboembolism Antithrombotics Is Pt On Any Antithrombotics?: No Problem Qualifiers (1) Acute pancreatitis: Pancreatitis type: unspecified pancreatitis type Acute pancreatitis complication: unspecified Qualified Codes: K85.90 - Acute pancreatitis without necrosis or infection, unspecified DAWN NASH TEST CONSULTANT Mar 23, 2018 09:04
--- NOTE | 2018-03-23 09:49 | Medical Nutrition Therapy ---
Nutritional Education Nutrition Education Topic: Other (Low fat for pancreatis) Learning Readiness: Interested Teaching Methods: Discussion, Handout Response to Teaching: Verbalize understanding Teaching Recipient: Patient, Significant Other Nutrition Counseling: Pt and attended session. Reviewed low fat. Pt and had recieved info at prior admit and was trying to follow. Provided sample day menu and discussed shopping list and foods could prepare that would be within diet guildlines. Nutrition Monitoring & Eval RD Patient Assessment Time: [address] Assessment Type: RD Education Patient Nutrition Acuity: 2-Moderate Follow Up Date: Mar 25, 2018 Nutritional Comment: 03/21 Pt admitted for pancreatitis. Pt came in with severe abdominal pain.Pt has been scheduled for ERCP next week. Pt is on regular diet with no intake recorded at this time. Pt has elevated lipase (395). Will continue to monitor pt progress, labs and encourage low fat diet. MT 03/22 Pt diet order had changed to clear liquid diet, pt has consumed 100% of his meals. Pt reports less pain, and appetite has returned. Lipase still remains elevated (582), BUN (7), and alb (3.1). Once pt advances to regular diet, pt may benefit from nutrition education regarding a low fat and high protein diet for his pancreatitis. Continue to monitor pt clinical progress, labs and encourage intake. MT 03/23 Provbided education on diet and pancreatitis. DINESH BOWER Mar 23, 2018 09:48
== END 2018-03-23 11:25 | disposition home or self-care (01) | DRG 440 ==
LOC: ER 18:22 → MED 19:28
PROVIDERS: ADMIT Family Medicine; ATTEND Family Medicine
DX: K85.90 Acute pancreatitis without necrosis or infection, unspecified (principal); Z90.49 Acquired absence of other specified parts of digestive tract
CPT/HCPCS: 36415; 81001; 82040; 82150; 82247; 82310; 82374; 82435; 82565; 82947; 83690; 84075; 84132; 84155; 84295; 84450; 84460; 84520; 85025; J1650; J2270; J2405; J2550; J3010; J7030

== ENCOUNTER → 2018-04-30 | Outpatient (CLI) | payer MEDICARE, BC ==
[2018-03-21 08:17] VITALS: BMI 21.5
[~2018-04-30] MED LIST changes: +CHOL500045 PO; +IOPAMIDOL 76% 100 ML INFUS BTL 100 ML ONE
--- NOTE | 2018-04-30 09:01 | RADIOLOGY IMAGING REPORT ---
FACILITY: [facility] - [place] PATIENT NAME: Uri Banuelos : 1950 MR: [id number] V: [id number] EXAM DATE: ORDERING PHYSICIAN: CORNELIUS GONSALEZ TECHNOLOGIST: Location: [facility] [place] Patient: Uri Banuelos : 1950 Visit/Account:[id number] Date of Sevice: 04/30/2018 ABDOMEN W W/O CONTRAST Indication: Pancreatitis, recurrent. History of stent placement one month ago. Comparison: None. Technique: CT lung bases to the iliac crest were obtained without and with IV contrast. 75 cc of Iso elijah 370 was used. One of the following dose optimization techniques was utilized in the performance of this exam: autom ated exposure control; adjustment of the mA and/or kV according to the patient's size; or use of an i terative reconstruction technique. Specific details can be referenced in the facility's radiology CT exam operational policy. Findings: Liver/gallbladder: Pneumobilia is seen. There is no evidence of suspicious mass. The intrahepatic. Ducts are normal in caliber. Gallbladder is surgically absent. Common bile duct stent is seen, which appears in good position. Spleen: Normal. Adrenals: Normal. Pancreas: Pancreatic duct stent is seen. The stent appears in good position. There is no evidence of pancreatic duct dilatation. Kidneys/: Small simple cyst is seen in the lower pole the right kidney. Both kidneys are otherwis e normal. GI: There is no focal abnormality in the small bowel or colon. Vessels/spaces/nodes: Negative. Bones/soft tissues: There are no lytic or blastic bone lesions. Soft tissues are normal. Lung bases: Calcified granuloma left lower lobe is seen. Impression: 1. Postoperative changes from a cholecystectomy. 2. Previously seen severe pancreatitis has completely resolved. Stents in the common bile duct and pancreatic duct are in good position, new from the prior study. Report Dictated By: Chandler Christensen at 04/30/2018 8:45 AM Report E-Signed By: Chandler Christensen at 04/30/2018 8:57 AM WSN:[id number]
== END ==
LOC: CT 00:11
PROVIDERS: ATTEND Physician Assistant
DX: Z96.89 Presence of other specified functional implants (principal); Z90.49 Acquired absence of other specified parts of digestive tract
CPT/HCPCS: 74170; Q9967

== ENCOUNTER → 2019-01-16 | Outpatient (REF) | payer MEDICARE, BC ==
[2018-03-21 08:17] VITALS: BMI 21.5
[~2019-01-16] MED LIST changes: -IOPAMIDOL 76% 100 ML INFUS BTL 100 ML ONE; -LOSA50TA72 PO; +LOSA50TA80 PO
== END ==
LOC: ZZSENDIN 12:00
PROVIDERS: ATTEND Urology
DX: N41.1 Chronic prostatitis (principal)
CPT/HCPCS: 88305; 88344